=== PATIENT | female | born 1985 | race Caucasian/White ===

== ENCOUNTER 2017-08-28 22:56 | Emergency (ER) | payer OTHER ==
[2017-08-28 23:44] LABS: INR 0.96 (0.77-1.02)
[2017-08-28 23:47] LABS: EGFR Non-African American 136.7 (>60)
[2017-08-29 00:04] LABS: ABS Basophils 0.2 10^3/ul (0-0.2); ABS Eosinophils 0.5 10^3/ul (0-0.6); ABS Lymphocytes 2.1 10^3/ul (1.0-4.8); ABS Monocytes 0.8 10^3/ul (0-0.8); ABS Neutrophils 10.1 10^3/ul (1.5-7.7); ABS Nucleated RBC 0 10^3/ul; Eosinophil % 3.9 % (0-6); Hematocrit 36 % (35-47); Hemoglobin 12.2 g/dl (12.0-16.0); Lymphocyte % 15.3 % (25-47); Mean Corpuscular HGB Conc 34 g/dl (31-36); Mean Corpuscular Hemoglobin 33 pg (27-31); Mean Corpuscular Volume 95 fL (80-97); Mean Platelet Volume 8 um3 (7.4-10.4); Nucleated Red Blood Cells % 0; Platelet Count 332 10^3/ul (150-450); Red Blood Count 3.77 10^6/ul (4.0-5.4); Red Cell Distribution Width 13 % (10.5-15); White Blood Count 13.7 10^3/ul (3.5-10.8)
--- NOTE | 2017-08-29 00:17 | ED ---
- HPI Summary HPI Summary: 32F LMP in may presents for possible miscarriage today. 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 She states that she has been unable to take a test due to not being able to urinate on stick. She urinates in a pad. She states this morning was small area and spotting but throughout the day has not gotten worst and is passing large clots. No chest pain, palpitations, or dizziness. She admits to nausea but denies any vomiting. She admits to abdominal pressure but she can not feel pain in abdomen. She was suppose to have test done tomorrow. - History of Current Complaint Chief Complaint: EDOBProblems Stated Complaint: POSS MISCARRIAGE Time Seen by Provider: 08/28/17 23:16 Pain Intensity: 0 - Additional Pertinent History Primary Care Physician: [id number] - Allergies/Home Medications Allergies/Adverse Reactions: Allergies Allergy/AdvReac Type Severity Reaction Status Date / Time Ceftriaxone [From Rocephin] Allergy Itching Verified 07/18/15 09:02 Ciprofloxacin Allergy See Comment Verified 07/18/15 09:02 Ofloxacin [From Floxin] Allergy Unknown Verified 07/18/15 09:02 Reaction Details PMH/Surg Hx/FS Hx/Imm Hx Endocrine/Hematology History: Reports: Hx Anemia Denies: Hx Anticoagulant Therapy, Hx Blood Disorders, Hx Blood Transfusions, Hx Bone Marrow Disease, Hx Diabetes, Hx Systemic Lupus Erythematosus, Hx Sickle Cell Disease, Hx Thyroid Disease, Hx Unexplained Bleeding, Other Endocrine/ Hematological Disorders Cardiovascular History: Denies: Hx Congestive Heart Failure, Hx Hypertension Respiratory History: Reports: Hx Asthma - PRN INHALERS GI History: Reports: Hx Ileostomy - COLOSTOMY History: Reports: Hx Kidney Stones - CURRENTLY Denies: Hx Renal Disease Musculoskeletal History: Reports: Hx Arthritis - LOW BACK, Hx Back Problems, Hx Tendonitis - WRISTS Sensory History: Reports: Hx Contacts or Glasses - INSTRUCTS Denies: Hx Cataracts, Hx Eye Injury, Hx Eye Prosthesis, Hx Glaucoma, Hx Legally Blind, Hx Macular Degeneration, Hx Vision Problem, Hx Deafness, Hx Hearing Aid, Hx Hearing Problem Opthamlomology History: Reports: Hx Contacts or Glasses - INSTRUCTS Denies: Hx Cataracts, Hx Eye Injury, Hx Eye Prosthesis, Hx Glaucoma, Hx Legally Blind, Hx Macular Degeneration, Hx Vision Problem Neurological History: Reports: Hx Spinal Cord Injury Psychiatric History: Reports: Hx Anxiety - NO MEDICATION FOR, Hx Depression - NO MEDICATION FOR Denies: Hx Attention Deficit Hyperactivity Disorder, Hx Eating Disorder, Hx Panic Disorder, Hx Post Traumatic Stress Disorder, Hx Community Mental Health Tx , Hx Schizophrenia, Hx Bipolar Disorder, Hx Suicide Attempt, Hx of Violent Episodes Against Others, Hx Substance Abuse - Surgical History Surgery Procedure, Year, and Place: 2002 spinal surgery-[facility] – [place]. EVACUATION OF EPIDURAL HEMATOMA. colostomy - 4 YEARS AGO. STENT PLACEMENT- RIGHT -[facility] [place]. STATES HAD OTHER SURGERIES - BUT DON'T KNOW WHAT THEY ARE FOR. 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 Denies: Traveled Outside the [place] in Last 30 Days - Family History Known Family History: Negative: Blood Disorder - Social History Alcohol Use: None Substance Use Type: Reports: None Smoking Status (MU): Light Every Day Tobacco Smoker Type: Cigarettes Amount Used/How Often: 1/2 PPD X 17 YEARS Have You Smoked in the Last Year: Yes Review of Systems Negative: Fever Negative: Palpitations, Chest Pain Positive: Other - vaginal bleeding All Other Systems Reviewed And Are Negative: Yes Physical Exam - Physical Exam Triage Information Reviewed: Yes Vital Signs Reviewed: Yes Appearance: Positive: Well-Appearing Skin: Positive: Warm, Dry Head/Face: Positive: Normal Head/Face Inspection Eyes: Positive: Normal, Conjunctiva Clear Respiratory/Lung Sounds: Positive: Clear to Auscultation, Breath Sounds Present Cardiovascular: Positive: Normal, RRR Abdomen Description: Positive: Other: - no sensation abdomen Bowel Sounds: Positive: Present Neurological: Positive: Speech Normal Psychiatric: Positive: Other - crying Diagnostics - Vital Signs Vital Signs Temp Pulse Resp BP Pulse Ox 08/28/17 23:12 97.6 F 76 20 119/76 100 - Laboratory Lab Results: Lab Results 08/28/17 08/28/17 08/28/17 Range/Units 23:13 23:13 23:13 INR (Anticoag Therapy) 0.96 (0.77-1.02) APTT 32.0 (26.0-36.3) seconds Sodium 134 (133-145) mmol/L Potassium 3.5 (3.5-5.0) mmol/L Chloride 106 (101-111) mmol/L Carbon Dioxide 21 L (22-32) mmol/L Anion Gap 7 (2-11) mmol/L BUN 9 (6-24) mg/dL Creatinine 0.52 (0.51-0.95) mg/dL Est GFR ( Amer) 175.7 (>60) Est GFR (Non-Af Amer) 136.7 (>60) BUN/Creatinine Ratio 17.3 (8-20) Glucose 85 (70-100) mg/dL Calcium 9.6 (8.6-10.3) mg/dL Total Bilirubin 0.20 (0.2-1.0) mg/dL AST 12 L (13-39) U/L ALT 9 (7-52) U/L Alkaline Phosphatase 68 (34-104) U/L Total Protein 7.6 (6.4-8.9) g/dL Albumin 4.2 (3.2-5.2) g/dL Globulin 3.4 (2-4) g/dL Albumin/Globulin Ratio 1.2 (1-3) Beta HCG, Quant 2982.00 mIU/mL Blood Type O Positive Result Diagrams: 08/28/17 23:13 08/28/17 23:13 Lab Statement: Any lab studies that have been ordered have been reviewed, and results considered in the medical decision making process. - Ultrasound No standard instances Ultrasound Interpretation: Positive (See Comments) - no visible intrauterine gestational sac, due to early gestation or spontaneous Ultrasound Interpretation Completed By: Radiologist Course/Dx - Course Course Of Treatment: 32F LMP in sept presents for possible miscarriage today. 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 She states that she has been unable to take a test due to not being able to urinate on stick. She urinates in a pad. She states this morning was small area and spotting but throughout the day has not gotten worst and is passing large clots. No chest pain, palpitations, or dizziness. She admits to nausea but denies any vomiting. She admits to abdominal pressure but she can not feel pain in abdomen. She was suppose to have test done tomorrow. on exam normal bowel sounds. patient can not feel abdomen. hcg is 2900. u/s shows no intrauterine pregnany. tech says saw products of conception in vaginal canal. did not due to pelvic for comfort of patient. will have follow up with obgyn. patient understand and agrees with plan. - Differential Diagnosis/HQI/PQRI: Incomplete , Spontaneous , Threatened - Diagnoses Provider Diagnoses: Vaginal bleeding in Discharge - Discharge Plan Condition: Good Disposition: HOME Patient Education Materials: Miscarriage (ED) Referrals: No Primary Care Phys,NOPCP [Primary Care Provider] - Heaven Honeycutt MD [Medical Doctor] - Additional Instructions: Likely miscarrying at this point Can take Tylenol for pain every 6 hours Follow up with obgyn, will need lab work done in 48 hours Return to ED if develop fever, severe bleeding with symptoms such as lightheadedness or any new or worsening symptoms
[2017-08-29 01:47] VITALS: BP 106/62
--- NOTE | 2017-08-29 07:44 | RAD ---
HISTORY: Vaginal bleeding with uncertain status. The beta-hCG measures 2982 mIU/mL COMPARISONS: None TECHNIQUE: Multiple transverse and longitudinal ultrasound images were obtained of the pelvis using grayscale, color flow, spectral and M-mode sonographic imaging. FINDINGS: UTERUS: The uterus measures 13.3 x 5.5 x 8.3 cm. The endometrial stripe is thickened and heterogeneous in echogenicity measuring up to 2.1 cm in thickness. GESTATION: No products of conception including a pole or gestational sac are visualized. CUL-DE-SAC: There is no free fluid within the cul-de-sac. RIGHT OVARY: The right ovary measures 2.6 x 1.6 x 2.3 cm. LEFT OVARY: The left ovary measures 2.4 x 1.9 x 2.7 cm. IMPRESSION: Irregular and thickened endometrial stripe in the presence of a positive beta-hCG could be seen in the setting of too early to visualize, missed or ectopic . Close clinical follow-up including serial beta hCG is advised.
== END 2017-08-29 01:48 | disposition home or self-care (01) ==
LOC: ED 22:56
DX: O46.90 Antepartum hemorrhage, unspecified, unspecified trimester (principal); Z3A.14 14 weeks gestation of pregnancy; N93.9 Abnormal uterine and vaginal bleeding, unspecified; F17.210 Nicotine dependence, cigarettes, uncomplicated
CPT/HCPCS: 36415; 76801; 80053; 84702; 85025; 85610; 85730; 86900; 86901; 99283

== ENCOUNTER 2019-01-17 16:42 | Emergency (ER) | payer SELFPAY ==
--- NOTE | 2019-01-17 17:34 | ED ---
Complex/Multi-Sys Presentation - HPI Summary HPI Summary: 33 year old F presenting to [facility] with a chief complaint of upper and lower, left-sided dental pain since yesterday. The patient rates the pain 10/10 in severity. Symptoms aggravated by nothing. Symptoms alleviated by nothing. Patient denies fever. - History Of Current Complaint Chief Complaint: EDDentalPain Time Seen by Provider: 01/17/19 17:28 Hx Obtained From: Patient Onset/Duration: Lasting Days - 1, Still Present Timing: Constant Severity Currently: Severe Location: Pain At: - upper and lower, left-sided dental pain Aggravating Factor(s): Nothing Alleviating Factor(s): Nothing Associated Signs And Symptoms: Negative: Fever - Allergies/Home Medications Allergies/Adverse Reactions: Allergies Allergy/AdvReac Type Severity Reaction Status Date / Time ceftriaxone [From Rocephin] Allergy Itching Verified 01/17/19 16:51 ofloxacin [From Floxin] Allergy Itching Verified 01/17/19 16:51 PMH/Surg Hx/FS Hx/Imm Hx Previously Healthy: No Endocrine/Hematology History: Reports: Hx Anemia Denies: Hx Anticoagulant Therapy, Hx Blood Disorders, Hx Blood Transfusions, Hx Bone Marrow Disease, Hx Diabetes, Hx Systemic Lupus Erythematosus, Hx Sickle Cell Disease, Hx Thyroid Disease, Hx Unexplained Bleeding, Other Endocrine/ Hematological Disorders Cardiovascular History: Denies: Hx Congestive Heart Failure, Hx Hypertension Respiratory History: Reports: Hx Asthma - PRN INHALERS GI History: Reports: Hx Ileostomy - COLOSTOMY History: Reports: Hx Kidney Stones - CURRENTLY Denies: Hx Renal Disease Musculoskeletal History: Reports: Hx Arthritis - LOW BACK, Hx Back Problems, Hx Tendonitis - WRISTS Sensory History: Reports: Hx Contacts or Glasses - INSTRUCTS Denies: Hx Cataracts, Hx Eye Injury, Hx Eye Prosthesis, Hx Glaucoma, Hx Legally Blind, Hx Macular Degeneration, Hx Vision Problem, Hx Deafness, Hx Hearing Aid, Hx Hearing Problem Opthamlomology History: Reports: Hx Contacts or Glasses - INSTRUCTS Denies: Hx Cataracts, Hx Eye Injury, Hx Eye Prosthesis, Hx Glaucoma, Hx Legally Blind, Hx Macular Degeneration, Hx Vision Problem Neurological History: Reports: Hx Spinal Cord Injury Psychiatric History: Reports: Hx Anxiety, Hx Depression, Hx Community Mental Health Tx, Hx Suicide Attempt Denies: Hx Attention Deficit Hyperactivity Disorder, Hx Eating Disorder, Hx Panic Disorder, Hx Post Traumatic Stress Disorder, Hx Inpatient Treatment, Hx Schizophrenia, Hx Bipolar Disorder, Hx of Violent Episodes Against Others, Hx Substance Abuse - Surgical History Surgery Procedure, Year, and Place: 2002 spinal surgery-[facility] [place]. EVACUATION OF EPIDURAL HEMATOMA. colostomy - 4 YEARS AGO. STENT PLACEMENT- RIGHT -[facility] [place]. STATES HAD OTHER SURGERIES - BUT DON'T KNOW WHAT THEY ARE FOR. 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 Denies: Traveled Outside the US in Last 30 Days - Family History Known Family History: Negative: Blood Disorder - Social History Alcohol Use: None Hx Substance Use: No Substance Use Type: Reports: None Hx Tobacco Use: Yes Smoking Status (MU): Light Every Day Tobacco Smoker Type: Cigarettes Amount Used/How Often: 1/2 PPD X 17 YEARS Have You Smoked in the Last Year: Yes Review of Systems Negative: Fever Positive: Dental Pain - upper and lower, left-sided dental pain All Other Systems Reviewed And Are Negative: Yes Physical Exam - Summary Physical Exam Summary: Appearance: The patient is well-nourished in no acute distress and in no acute pain. Skin: The skin is warm and dry and skin color reflects adequate perfusion. HEENT: The head is normocephalic and atraumatic. The pupils are equal and reactive. The conjunctivae are clear and without drainage. Nares are patent and without drainage. Mouth reveals moist mucous membranes and the throat is without erythema and exudate. The external ears are intact. The ear canals are patent and without drainage. The tympanic membranes are intact. Mouth: Patient has no cellulitis, abscess, or lymphadenopathy. She has LS3 fracture in her left, last maxillary premolar. Neck: The neck is supple with full range of motion and non-tender. There are no carotid bruits. There is no neck vein distension. Respiratory: Chest is non-tender. Lungs are clear to auscultation and breath sounds are symmetrical and equal. Cardiovascular: Heart is regular rate and rhythm. There is no murmur or rub auscultated. There is no peripheral edema and pulses are symmetrical and equal. Abdomen: The abdomen is soft and non-tender. There are normal bowel sounds heard in all four quadrants and there is no organomegaly palpated. Musculoskeletal: There is no back tenderness noted. Extremities are non-tender with full range of motion. There is good capillary refill. There is no peripheral edema or calf tenderness elicited. Neurological: Patient is alert and oriented to person, place and time. The patient has symmetrical motor strength in all four extremities. Cranial nerves are grossly intact. Deep tendon reflexes are symmetrical and equal in all four extremities. Psychiatric: The patient has an appropriate affect and does not exhibit any anxiety or depression. Triage Information Reviewed: Yes Vital Signs On Initial Exam: Initial Vitals Temp Pulse Resp BP Pulse Ox 97.8 F 112 18 122/80 100 01/17/19 16:51 01/17/19 16:51 01/17/19 16:51 01/17/19 16:51 01/17/19 16:51 Vital Signs Reviewed: Yes Diagnostics - Vital Signs Vital Signs Temp Pulse Resp BP Pulse Ox 01/17/19 16:51 97.8 F 112 18 122/80 100 - Laboratory Lab Statement: Any lab studies that have been ordered have been reviewed, and results considered in the medical decision making process. Complex Multi-Symp Course/Dx Course Of Treatment: Ms. Sierra is a candidate and broken tooth on her left mandible the maxillary teeth look okay. There is no sign of cellulitis or abscess. There is no lymphadenopathy. I will treat her with antibiotics and pain medication. She gets a prescription every 10 days or so for hydrocodone and is due for a new one so I will fill that. She is allergic to Rocephin but states that she can tolerate penicillin and I will treat her with pen VK. - Diagnoses Provider Diagnoses: Toothache Discharge - Sign-Out/Discharge Documenting (check all that apply): Patient Departure - Discharge Patient Received Moderate/Deep Sedation with Procedure: No - Discharge Plan Condition: Stable Disposition: HOME Prescriptions: HYDROcodone/ACETAMIN 5-325 MG* [[place] 5-325 TAB*] 1 tab PO Q6H PRN #20 tab MDD 4 PRN Reason: Pain Penicillin VK TAB* [Penicillin VK 250 mg Tab*] 500 mg PO QID #40 tab Patient Education Materials: Toothache (ED) Referrals: Hardik Farley [employer] [Primary Care Provider] - Additional Instructions: Follow up with your dentist in 3 days. Return to the Emergency Department for new or worsening symptoms. - Billing Disposition and Condition Condition: STABLE Disposition: Home - Attestation Statements Document Initiated by Scribe: Yes Documenting Scribe: Brittany Partida Provider For Whom Scribe is Documenting (Include Credential): Schuyler Joshi MD Scribe Attestation: I, Brittany Partida, scribed for Schuyler Joshi MD on 01/18/19 at 0730. Scribe Documentation Reviewed: Yes Provider Attestation: The documentation as recorded by the scribeBrittany accurately reflects the service I personally performed and the decisions made by me, Schuyler Joshi MD Status of Scribe Document: Viewed
[2019-01-17 17:44] VITALS: BP 125/78
== END 2019-01-17 17:42 | disposition home or self-care (01) ==
LOC: ED 16:42
DX: K08.89 Other specified disorders of teeth and supporting structures (principal); D64.9 Anemia, unspecified; J45.909 Unspecified asthma, uncomplicated; F17.210 Nicotine dependence, cigarettes, uncomplicated
CPT/HCPCS: 99282

== ENCOUNTER 2019-01-26 01:44 | Emergency (ER) | payer OTHER ==
[2019-01-26] MEDS ORDERED: LORazepam INJ* 2 MG/ML 1 ML VIAL ONE ×2 (01:47→02:00)
--- NOTE | 2019-01-26 01:51 | ED ---
Psychiatric Complaint - HPI Summary HPI Summary: This patient is a 33 year old female brought in by law enforcement on 941 presenting to [facility] with a chief complaint of suicide attempt. The patient video chatted her putting a pair of scissors to her throat threatening to slit it. Her called law enforcement and she was gesturing the attempt when they arrived. Law Enforcement states she does not want to be here because a surgical error resulted in paralysis from the waist down, and that it is giving her anxiety. They also state that the source of this SI and plan are a losing custody gilliam over her children. - History Of Current Complaint Hx Obtained From: Patient, Other: - Law Enforcment Severity Currently: Severe Character: Anxious Has Suicidal: Reports: Thoughts, With A Plan, Demonstrates Gesture, Has Prior Attempt(s) - Allergies/Home Medications Allergies/Adverse Reactions: Allergies Allergy/AdvReac Type Severity Reaction Status Date / Time ceftriaxone [From Rocephin] Allergy Itching Verified 01/17/19 16:51 ofloxacin [From Floxin] Allergy Itching Verified 01/17/19 16:51 PMH/Surg Hx/FS Hx/Imm Hx Endocrine/Hematology History: Reports: Hx Anemia Denies: Hx Anticoagulant Therapy, Hx Blood Disorders, Hx Blood Transfusions, Hx Bone Marrow Disease, Hx Diabetes, Hx Systemic Lupus Erythematosus, Hx Sickle Cell Disease, Hx Thyroid Disease, Hx Unexplained Bleeding, Other Endocrine/ Hematological Disorders Cardiovascular History: Denies: Hx Congestive Heart Failure, Hx Hypertension Respiratory History: Reports: Hx Asthma - PRN INHALERS GI History: Reports: Hx Ileostomy - COLOSTOMY History: Reports: Hx Kidney Stones - CURRENTLY Denies: Hx Renal Disease Musculoskeletal History: Reports: Hx Arthritis - LOW BACK, Hx Back Problems, Hx Tendonitis - WRISTS Sensory History: Reports: Hx Contacts or Glasses - INSTRUCTS Denies: Hx Cataracts, Hx Eye Injury, Hx Eye Prosthesis, Hx Glaucoma, Hx Legally Blind, Hx Macular Degeneration, Hx Vision Problem, Hx Deafness, Hx Hearing Aid, Hx Hearing Problem Opthamlomology History: Reports: Hx Contacts or Glasses - INSTRUCTS Denies: Hx Cataracts, Hx Eye Injury, Hx Eye Prosthesis, Hx Glaucoma, Hx Legally Blind, Hx Macular Degeneration, Hx Vision Problem Neurological History: Reports: Hx Spinal Cord Injury Psychiatric History: Reports: Hx Anxiety, Hx Depression, Hx Community Mental Health Tx, Hx Suicide Attempt Denies: Hx Attention Deficit Hyperactivity Disorder, Hx Eating Disorder, Hx Panic Disorder, Hx Post Traumatic Stress Disorder, Hx Inpatient Treatment, Hx Schizophrenia, Hx Bipolar Disorder, Hx of Violent Episodes Against Others, Hx Substance Abuse - Surgical History Surgery Procedure, Year, and Place: 2002 spinal surgery[place] [place] EVACUATION OF EPIDURAL HEMATOMA. colostomy - 4 YEARS AGO. STENT PLACEMENT- RIGHT [place] [place] STATES HAD OTHER SURGERIES - BUT DON'T KNOW WHAT THEY ARE FOR. 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 GENERAL: Patient is a well-developed and nourished FEMALE who is crying an uncooperative. HEAD AND FACE: No signs of trauma. No ecchymosis, hematomas or skull depressions. No sinus tenderness. EYES: PERRLA, EOMI x 2, No injected conjunctiva, no nystagmus. EARS: Hearing grossly intact. Ear canals and tympanic membranes are within normal limits. MOUTH: Oropharynx within normal limits. NECK: Supple, trachea is midline, no adenopathy, no JVD, no carotid bruit, no c- spine tenderness, neck with full ROM. Self inflicted superficial laceration over her neck. CHEST: Symmetric, no tenderness at palpation LUNGS: Clear to auscultation bilaterally. No wheezing or crackles. CVS: Regular rate and rhythm, S1 and S2 present, no murmurs or gallops appreciated.Colostomy with a clean artificial outlet on the left lower quadrant with no ostomy bag present. ABDOMEN: Soft, non-tender. No signs of distention. No rebound no guarding, and no masses palpated. Bowel sounds are normal. EXTREMITIES: Paraplegia in the bilateral lower extremities, no edema, no cyanosis or clubbing. NEURO: Alert and oriented x 3. No acute neurological deficits. Speech is normal and follows commands. SKIN: Dry and warm GCS: 15 Triage Information Reviewed: Yes Vital Signs On Initial Exam: Temp Pulse Resp BP Pulse Ox 99.5 F 133 30 00/00 100 01/26/19 01:44 01/26/19 01:44 01/26/19 01:44 01/26/19 01:44 01/26/19 01:44 Vital Signs Reviewed: Yes Diagnostics - Laboratory Result Diagrams: 01/26/19 02:41 01/26/19 02:41 Lab Statement: Any lab studies that have been ordered have been reviewed, and results considered in the medical decision making process. - CT Brain CT Interpretation Completed By: Radiologist Summary of CT Findings: No acute intracranial abnormality. ED Provider has reviewed this report. Course/Dx - Course Course Of Treatment: This patient is a 33 year old female brought in by law enforcement on 941 presenting to [facility] with a chief complaint of suicide attempt. This patient will be signed out to Dr. Jackson pending medical clearance and MHE. - Differential Dx/Clinical Impression Provider Diagnosis: Suicidal ideation Discharge - Sign-Out/Discharge Documenting (check all that apply): Sign-Out Patient Signing out patient TO: Schuyler Jackson - At shift change 0700 - Discharge Plan Condition: Stable Referrals: Hardik Farley, [employer]DER [Primary Care Provider] - - Attestation Statements Document Initiated by Scribe: Yes Documenting Scribe: Uriah Isidro Provider For Whom Scribe is Documenting (Include Credential): Shelby Oglesby MD Scribe Attestation: Uriah Leary, scribed for Shelby Oglesby MD on 01/26/19 at 0638.
[2019-01-26] MEDS ORDERED: Haloperidol INJ IV/IM* 5 MG/ML AMP ONE (02:00)
[2019-01-26] MEDS ORDERED: diPHENhydraMINE PO* 50 MG ONE (02:00)
[2019-01-26 02:50] LABS: ABS Basophils 0.1 10^3/ul (0-0.2); ABS Eosinophils 0.3 10^3/ul (0-0.6); ABS Lymphocytes 1.5 10^3/ul (1.0-4.8); ABS Monocytes 0.5 10^3/ul (0-0.8); ABS Neutrophils 6.6 10^3/ul (1.5-7.7); Eosinophil % 2.9 %; Hematocrit 34 % (35-47); Hemoglobin 10.9 g/dL (12.0-16.0); Lymphocyte % 17.2 %; Mean Corpuscular HGB Conc 32 g/dL (31-36); Mean Corpuscular Hemoglobin 29 pg (27-31); Mean Corpuscular Volume 88 fL (80-97); Mean Platelet Volume 7.7 fL (7.4-10.4); Platelet Count 438 10^3/uL (150-450); Red Blood Count 3.83 10^6 /uL (3.70-4.87); Red Cell Distribution Width 17 % (10.5-15); White Blood Count 8.9 10^3/uL (3.5-10.8)
[2019-01-26 03:05] LABS: ALT 13 U/L (7-52); AST 21 U/L (13-39); Albumin 4.4 g/dL (3.2-5.2); Albumin/Globulin Ratio 1.4 (1-3); Alkaline Phosphatase 109 U/L (34-104); Anion Gap 7 mmol/L (2-11); BUN/Creatinine Ratio 11.4 (8-20); Blood Urea Nitrogen 8 mg/dL (6-24); CO2 Carbon Dioxide 22 mmol/L (22-32); Calcium 9.4 mg/dL (8.6-10.3); Chloride 110 mmol/L (101-111); EGFR African American 116.6 (>60); EGFR Non-African American 96.4 (>60); Globulin 3.2 g/dL (2-4); Glucose 92 mg/dL (70-100); Potassium 3.7 mmol/L (3.5-5.0); Sodium 139 mmol/L (135-145); Total Protein 7.6 g/dL (6.4-8.9)
[2019-01-26 03:12] LABS: HCG Pregnancy < 0.60 mIU/mL
[2019-01-26 03:19] LABS: Acetaminophen < 15 mcg/mL; Alcohol < 10 mg/dL (<10); Salicylate < 2.50 mg/dL (<30)
[2019-01-26 03:34] LABS: TSH (Thyroid Stimulating Horm) 0.73 mcIU/mL (0.34-5.60)
--- NOTE | 2019-01-26 07:05 | ED ---
Progress - Progress Note Progress Note: This patient was signed out from Dr. Oglesby to Dr. Jackson upon shift change, pending medical clearance and MHE. This patient was medically cleared for MHE at 0729. MHE done at [address] Holloway. The patient will be discharged after safety plan is done with dx of unspecified depression. She will also be given instructions by the MHU to follow up with [facility]. Patient understands and agrees with this plan. Course/Dx - Course Course Of Treatment: This patient was signed out from Dr. Oglesby to Dr. Jackson upon shift change, pending medical clearance and MHE. This patient was medically cleared for MHE at 0729. MHE done at [address] Holloway. The patient will be discharged after safety plan is done with dx of unspecified depression. She will also be given instructions by the MHU to follow up with [facility]. Patient understands and agrees with this plan. - Diagnoses Provider Diagnoses: Depression Discharge - Sign-Out/Discharge Documenting (check all that apply): Patient Departure - discharge Patient Received Moderate/Deep Sedation with Procedure: No - Discharge Plan Condition: Stable Disposition: HOME Patient Education Materials: Depression (ED) Referrals: Hardik Farley NP [Primary Care Provider] - - Billing Disposition and Condition Condition: STABLE Disposition: Home - Attestation Statements Document Initiated by Breana: Yes Documenting Scribe: Elie Warren Provider For Whom Breana is Documenting (Include Credential): MD Breana Morris Attestation: Elie Leary, scribed for Schuyler Jackson MD on 01/26/19 at 1704. Scribe Documentation Reviewed: Yes Provider Attestation: The documentation as recorded by the Elie devries accurately reflects the service I personally performed and the decisions made by , Schuyler Jackson MD Status of Scribe Document: Viewed
[2019-01-26 10:33] VITALS: BP 112/65
== END 2019-01-26 11:00 | disposition home or self-care (01) ==
LOC: ED 01:44
DX: R45.851 Suicidal ideations (principal); F32.9 Major depressive disorder, single episode, unspecified; G82.20 Paraplegia, unspecified; D64.9 Anemia, unspecified; J45.909 Unspecified asthma, uncomplicated; M19.90 Unspecified osteoarthritis, unspecified site; F41.9 Anxiety disorder, unspecified; F17.210 Nicotine dependence, cigarettes, uncomplicated; Z88.3 Allergy status to other anti-infective agents; Z88.8 Allergy status to other drugs, medicaments and biological substances; Z95.1 Presence of aortocoronary bypass graft; Z93.3 Colostomy status; Z87.442 Personal history of urinary calculi
CPT/HCPCS: 36415; 70450; 80053; 80320; 80329; 84443; 84702; 85025; 99285; A9270-GY; G0480; J1630; J2060

== ENCOUNTER 2019-01-29 21:35 | Emergency (ER) | payer MEDICAID, OTHER ==
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
[2019-01-30 00:18] VITALS: BP 116/72
== END 2019-01-30 00:20 | disposition home or self-care (01) ==
LOC: ED 21:35
DX: S06.0X0A Concussion without loss of consciousness, initial encounter (principal); X58.XXXA Exposure to other specified factors, initial encounter; D64.9 Anemia, unspecified; J45.909 Unspecified asthma, uncomplicated; M19.90 Unspecified osteoarthritis, unspecified site; F41.9 Anxiety disorder, unspecified; F32.9 Major depressive disorder, single episode, unspecified; F17.210 Nicotine dependence, cigarettes, uncomplicated; Z88.8 Allergy status to other drugs, medicaments and biological substances; Z88.3 Allergy status to other anti-infective agents; Z79.51 Long term (current) use of inhaled steroids; Z93.3 Colostomy status
CPT/HCPCS: 36415; 70450; 84702; 99282

== ENCOUNTER 2019-02-03 09:32 | Emergency (ER) | payer MEDICAID, OTHER ==
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
[2019-02-03 11:34] VITALS: BP 123/74
== END 2019-02-03 11:31 | disposition home or self-care (01) ==
LOC: ED 09:32
DX: M20.61 Acquired deformities of toe(s), unspecified, right foot (principal); W05.0XXA Fall from non-moving wheelchair, initial encounter; Y92.9 Unspecified place or not applicable; Z99.3 Dependence on wheelchair; D64.9 Anemia, unspecified; J45.909 Unspecified asthma, uncomplicated; F17.210 Nicotine dependence, cigarettes, uncomplicated; Z93.3 Colostomy status
CPT/HCPCS: 99281

== ENCOUNTER 2019-02-23 18:10 | Inpatient (IN) | payer OTHER ==
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
[2019-02-23] MEDS ORDERED: LORazepam INJ* 2 MG/ML 1 ML VIAL IM ONE (18:36)
[2019-02-23] MEDS ORDERED: diPHENhydraMINE IV* 50 MG/ML 1 ml VIAL (BENADRYL) IM ONE (18:36)
[2019-02-23] MEDS ORDERED: Haloperidol INJ IV/IM* 5 MG/ML AMP IM ONE (18:36)
[2019-02-23] MEDS ORDERED: LORazepam INJ* 2 MG/ML 1 ML VIAL ONE (18:53)
[2019-02-23 20:14] LABS: ABS Basophils 0.1 10^3/ul (0-0.2); ABS Eosinophils 0.2 10^3/ul (0-0.6); ABS Lymphocytes 1.5 10^3/ul (1.0-4.8); ABS Monocytes 0.7 10^3/ul (0-0.8); ABS Neutrophils 8.9 10^3/ul (1.5-7.7); Eosinophil % 1.7 %; Hematocrit 34 % (35-47); Hemoglobin 11.1 g/dL (12.0-16.0); Lymphocyte % 12.8 %; Mean Corpuscular HGB Conc 33 g/dL (31-36); Mean Corpuscular Hemoglobin 29 pg (27-31); Mean Corpuscular Volume 86 fL (80-97); Mean Platelet Volume 7.3 fL (7.4-10.4); Platelet Count 481 10^3/uL (150-450); Red Cell Distribution Width 17 % (10-15); White Blood Count 11.4 10^3/uL (3.5-10.8)
[2019-02-23 20:31] LABS: ALT 13 U/L (7-52); AST 17 U/L (13-39); Albumin 4.4 g/dL (3.2-5.2); Albumin/Globulin Ratio 1.3 (1-3); Alkaline Phosphatase 120 U/L (34-104); Anion Gap 8 mmol/L (2-11); BUN/Creatinine Ratio 8.8 (8-20); Blood Urea Nitrogen 6 mg/dL (6-24); CO2 Carbon Dioxide 22 mmol/L (22-32); Calcium 9.7 mg/dL (8.6-10.3); Chloride 107 mmol/L (101-111); EGFR African American 120.6 (>60); EGFR Non-African American 99.6 (>60); Globulin 3.5 g/dL (2-4); Glucose 89 mg/dL (70-100); Potassium 3.6 mmol/L (3.5-5.0); Sodium 137 mmol/L (135-145); Total Protein 7.9 g/dL (6.4-8.9)
[2019-02-23 20:36] LABS: HCG Pregnancy < 0.60 mIU/mL
[2019-02-23 20:50] LABS: Acetaminophen < 15 mcg/mL; Alcohol < 10 mg/dL (<10); Salicylate < 2.50 mg/dL (<30)
[2019-02-23 21:05] LABS: TSH (Thyroid Stimulating Horm) 1.32 mcIU/mL (0.34-5.60)
--- NOTE | 2019-02-24 04:30 | ED ---
Progress - Progress Note Progress Note: Patient is received as a sign out from Dr. Joshi to Dr. Oglesby at 2200 02/23/19 shift end pending MHE and disposition of this MH patient. 51 - Dr. Quintanilla has reviewed the patient's case per MH worker. Patient will be transferred to another facility, Dx of depressive disorder. Patient will be signed out to Dr. Esqueda at 0700 02/24/19 pending disposition of this mental health patient. - Consult/PCP Time Called: 22:02 Course/Dx - Course Course Of Treatment: Patient is received as a sign out from Dr. Joshi to Dr. Oglesby at 2200 02/23/19 shift end pending MHE and disposition of this MH patient. 51 - Dr. Quintanilla has reviewed the patient's case per MH worker. Patient will be transferred to another facility, Dx of depressive disorder. Patient will be signed out to Dr. Esqueda at 0700 02/24/19 pending disposition of this mental health patient. - Diagnoses Provider Diagnoses: Depressive disorder - Provider Notifications Discussed Care Of Patient With: Terrance Quintanilla Time Discussed With Above Provider: 00:52 Instructed by Provider To: Other - 51 - Dr. Quintanilla has reviewed the patient' s case per MH worker. Patient will be transferred to another facility, Dx of depressive disorder. Discharge - Sign-Out/Discharge Documenting (check all that apply): Sign-Out Patient, Receiving Sign-Out Signing out patient TO: Amandeep Esqueda Receiving patient FROM: Schuyler Joshi - Discharge Plan Referrals: Hardik Farley, [employer] [Primary Care Provider] - - Attestation Statements Document Initiated by Scribe: Yes Documenting Scribe: BETO HERNNADEZ Provider For Whom Breana is Documenting (Include Credential): JATIN OGLESBY MD Scrib[employer]ro Attestation: BETO Leary, paruled for JATIN OGLESBY MD on 02/24/19 at 0608. Status of Scribe Document: Ready
--- NOTE | 2019-02-24 07:22 | ED ---
Progress - Progress Note Progress Note: Pt is received as a sign out to Dr. Esqueda from Dr. Oglesby at shift change 0700 pending a transfer for this mental health pt. - Consult/PCP Time Called: 22:02 Re-Evaluation - Re-Evaluation First Eval Re-Evaluation Time: 08:08 Change: Unchanged Comment: Pt will be admitted to [facility] per Adan Irving. Course/Dx - Course Course Of Treatment: Pt is received as a sign out to Dr. Esqueda from Dr. Oglesby at shift change 0700 02/24/19 pending a transfer for this mental health pt. Pt will be admitted to [facility] with a Dx of unspecified depression from adan Irving. - Diagnoses Provider Diagnoses: Depressive disorder - Provider Notifications Discussed Care Of Patient With: Anastacio Quintanilla Time Discussed With Above Provider: 08:07 Instructed by Provider To: Admit As Inpatient Admit/Transition Orders Completed By ED Provider: Yes Discharge - Sign-Out/Discharge Documenting (check all that apply): Patient Departure - admitted Patient Received Moderate/Deep Sedation with Procedure: No - Discharge Plan Condition: Stable Disposition: PSYCHIATRIC FACILITY-[facility] - Attestation Statements Document Initiated by Scribe: Yes Documenting Scribe: Ricardo Velásquez Provider For Whom Scribe is Documenting (Include Credential): Amandeep Esqueda MD Scribe Attestation: Ricardo Leary, scribed for Amandeep Esqueda MD on 02/24/19 at 1706. Status of Scribe Document: Ready
[2019-02-24] MEDS ORDERED: Acetaminophen TAB* 325 MG PO PRN (10:48)
[2019-02-24] MEDS ORDERED: Al Hydrox/Mg Hydrox/Simet LIQ* 30 ML UDC PO PRN (10:48)
[2019-02-24] MEDS: hydrOXYzine HCL TAB* 25 MG PO PRN (18:46)
[2019-02-24 20:32] LABS: Urine Appearance Cloudy; Urine Bacteria Absent (Absent); Urine Bilirubin Negative (Negative); Urine Blood 2+ (Negative); Urine Color Amber; Urine Glucose Negative (Negative); Urine Ketones 1+ (Negative); Urine Nitrite Positive (Negative); Urine Protein Negative (Negative); Urine Red Blood Cell 2+(6-10/hpf) (Absent); Urine Specific Gravity 1.018 (1.010-1.030); Urine Squamous Epithelial Cell Present (Absent); Urine Urobilinogen Negative (Negative); Urine White Blood Cell 3+(>20/hpf) (Absent)
[2019-02-24 20:41] LABS: Urine Benzodiazepine Screen None Detected (None Detect); Urine Opiates Screen None Detected (None Detect)
[2019-02-25] MEDS ORDERED: Venlafaxine ER (NF) 150 MG CAP.ER PO SCH (09:00)
[2019-02-25] MEDS: NORGESTIMATE ETHINYL ESTRADIOL PO SCH (09:07)
[2019-02-25] MEDS: Venlafaxine EXT RELEASE CAP* 75 MG PO SCH (10:10)
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
[2019-02-26] MEDS: hydrOXYzine HCL TAB* 25 MG PO PRN ×2 (02:53→17:55)
[2019-02-26] MEDS: NORGESTIMATE ETHINYL ESTRADIOL PO SCH (08:50)
[2019-02-26] MEDS: Venlafaxine EXT RELEASE CAP* 75 MG PO SCH (09:02)
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
[2019-02-27] MEDS: hydrOXYzine HCL TAB* 25 MG PO PRN (00:08)
[2019-02-27] MEDS: NORGESTIMATE ETHINYL ESTRADIOL PO SCH (08:02)
[2019-02-27 08:18] VITALS: BP 113/50
[2019-02-27] MEDS: Venlafaxine EXT RELEASE CAP* 75 MG PO SCH (09:14)
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
== END 2019-02-27 11:05 | disposition home or self-care (01) | DRG 751 ==
LOC: ED 18:10 → BSU 02-24 10:48
PROVIDERS: ADMIT Psychiatry & Neurology Psychiatry; ATTEND Psychiatry & Neurology Psychiatry
DX: F33.1 Major depressive disorder, recurrent, moderate (principal); D68.0 Von Willebrand disease; F41.9 Anxiety disorder, unspecified; L98.8 Other specified disorders of the skin and subcutaneous tissue; J45.909 Unspecified asthma, uncomplicated; S11.91XA Laceration without foreign body of unspecified part of neck, initial encounter; X78.1XXA Intentional self-harm by knife, initial encounter; N20.0 Calculus of kidney; F17.210 Nicotine dependence, cigarettes, uncomplicated; Z91.5 Personal history of self-harm; Z87.440 Personal history of urinary (tract) infections; Z88.1 Allergy status to other antibiotic agents; Y92.099 Unspecified place in other non-institutional residence as the place of occurrence of the external cause; Z93.3 Colostomy status
CPT/HCPCS: 36415; 80053; 80061; 80307; 80320; 80329; 81003; 81015; 83036; 84443; 84702; 85025; 87077; 87086; 87186; 87641; 93005; 99222; 99231; 99238; 99284; A9270-GY; G0480; J1200; J1630; J2060

== ENCOUNTER 2019-08-15 01:46 | Emergency (ER) | payer OTHER ==
[2019-08-15] MEDS ORDERED: Naproxen TAB* 250 MG PO ONE (05:58)
--- NOTE | 2019-08-15 06:10 | ED ---
Upper Extremity Pain - HPI Summary HPI Summary: Patient is a 34-year-old female who presents emergency department for exacerbation of left shoulder pain 3 days. Patient states she's been having intermittent left shoulder pain for about 3 years. 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 Patient is confined to wheelchair and uses her arms frequently. She does not recall any significant injuries or falls. Patient states she has not taken any over-the- counter analgesics or tried ice or heat for pain. Symptoms are mild in severity. Moving all extremities worse. Rest makes symptoms better. - History of Current Complaint Chief Complaint: EDExtremityUpper Stated Complaint: LEFT SHOULDER PAIN Time Seen by Provider: 08/15/19 05:37 Hx Obtained From: Patient - Allergies/Home Medications Allergies/Adverse Reactions: Allergies Allergy/AdvReac Type Severity Reaction Status Date / Time ceftriaxone [From Rocephin] Allergy Itching Verified 02/03/19 10:18 ciprofloxacin [From Cipro] Allergy See Comment Verified 02/03/19 10:18 ofloxacin [From Floxin] Allergy Itching Verified 02/03/19 10:18 PMH/Surg Hx/FS Hx/Imm Hx Previously Healthy: Yes Endocrine/Hematology History: Reports: Hx Anemia Denies: Hx Anticoagulant Therapy, Hx Blood Disorders, Hx Blood Transfusions, Hx Bone Marrow Disease, Hx Diabetes, Hx Systemic Lupus Erythematosus, Hx Sickle Cell Disease, Hx Thyroid Disease, Hx Unexplained Bleeding, Other Endocrine/ Hematological Disorders Cardiovascular History: Denies: Hx Congestive Heart Failure, Hx Hypertension Respiratory History: Reports: Hx Asthma - PRN INHALERS GI History: Reports: Hx Ileostomy - COLOSTOMY History: Reports: Hx Kidney Stones, Other Problems/Disorders - hx of frequent UTIs Denies: Hx Renal Disease Musculoskeletal History: Reports: Hx Arthritis - LOW BACK, Hx Back Problems, Hx Tendonitis - WRISTS Sensory History: Reports: Hx Contacts or Glasses - INSTRUCTS Denies: Hx Cataracts, Hx Eye Injury, Hx Eye Prosthesis, Hx Glaucoma, Hx Legally Blind, Hx Macular Degeneration, Hx Vision Problem, Hx Deafness, Hx Hearing Aid, Hx Hearing Problem Opthamlomology History: Reports: Hx Contacts or Glasses - INSTRUCTS Denies: Hx Cataracts, Hx Eye Injury, Hx Eye Prosthesis, Hx Glaucoma, Hx Legally Blind, Hx Macular Degeneration, Hx Vision Problem Neurological History: Reports: Hx Spinal Cord Injury Psychiatric History: Reports: Hx Anxiety, Hx Depression, Hx Community Mental Health Tx, Hx Suicide Attempt Denies: Hx Attention Deficit Hyperactivity Disorder, Hx Eating Disorder, Hx Panic Disorder, Hx Post Traumatic Stress Disorder, Hx Inpatient Treatment, Hx Schizophrenia, Hx Bipolar Disorder, Hx of Violent Episodes Against Others, Hx Substance Abuse - Surgical History Surgery Procedure, Year, and Place: 2002 spinal surgery-[facility]. EVACUATION OF EPIDURAL HEMATOMA. colostomy - 4 YEARS AGO. STENT PLACEMENT- RIGHT [place] [place]. STATES HAD OTHER SURGERIES - BUT DON'T KNOW WHAT THEY ARE FOR. 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, History Other Infectious Disease - VRE Denies: Traveled Outside the [place] in Last 30 Days - Family History Known Family History: Positive: Non-Contributory Negative: Blood Disorder - Social History Occupation: Employed Full-time Lives: With Family Alcohol Use: None Alcohol Amount: unk Hx Substance Use: No Substance Use Type: Reports: None Substance Use Comment - Amount & Last Used: unk Hx Tobacco Use: Yes Smoking Status (MU): Current Every Day Smoker Type: Cigarettes Amount Used/How Often: 1/2 PPD X 17 YEARS Have You Smoked in the Last Year: Yes Review of Systems Constitutional: Negative Negative: Fever Positive: Other - left shoulder pain Skin: Negative Neurological: Negative Negative: Weakness, Paresthesia, Numbness All Other Systems Reviewed And Are Negative: Yes Physical Exam Triage Information Reviewed: Yes Vital Signs On Initial Exam: Initial Vitals Temp Pulse Resp BP Pulse Ox 97.8 F 82 18 119/66 100 08/15/19 02:17 08/15/19 02:17 08/15/19 02:17 08/15/19 02:17 08/15/19 02:17 Vital Signs Reviewed: Yes Appearance: Positive: Well-Appearing - Pt. lying in bed in NAD. Skin: Positive: Warm, Dry Head/Face: Positive: Normal Head/Face Inspection Eyes: Positive: Normal, EOMI, RAMAKRISHNA Neck: Positive: Supple, Nontender Musculoskeletal: Positive: Other - Paraplegic. Good pulse to left UE. No edema. Full ROM of shoulder with pain with abduction. Pain over proximal humerous. Neurological: Positive: Normal, CN Intact II-III Psychiatric: Positive: Affect/Mood Appropriate Procedures - Sedation Patient Received Moderate/Deep Sedation with Procedure: No Diagnostics - Vital Signs Vital Signs Temp Pulse Resp BP Pulse Ox 08/15/19 02:17 97.8 F 82 18 119/66 100 - Laboratory Lab Statement: Any lab studies that have been ordered have been reviewed, and results considered in the medical decision making process. Course/Dx - Course Course Of Treatment: Shoulder x-ray negative for acute findings per my reading. Suspect possibly tendinitis secondary to overuse. Recommend anti- inflammatories ice and rest. Will follow-up with PCP if pain persists further evaluation. Patient understands and agrees with plan. - Diagnoses Differential Diagnosis/HQI/PQRI: Positive: Arthritis, Bursitis, Fracture (Closed ), Strain, Sprain Provider Diagnoses: Shoulder pain Discharge ED - Sign-Out/Discharge Documenting (check all that apply): Patient Departure - Discharge Plan Condition: Good Disposition: HOME Patient Education Materials: Shoulder Pain (ED) Forms: *Work Release Referrals: Hardik Farley NP [Primary Care Provider] - Additional Instructions: Follow up with your PCP if pain persist Recommend ibuprofen 400mg every 6-8 hours as directed for pain Avoid overuse Ice intermittently Return to ER if symptoms change or worsen - Billing Disposition and Condition Condition: GOOD Disposition: Home
[2019-08-15 06:40] VITALS: BP 121/76
== END 2019-08-15 06:20 | disposition home or self-care (01) ==
LOC: ED 01:46
DX: M25.512 Pain in left shoulder (principal); D64.9 Anemia, unspecified; J45.909 Unspecified asthma, uncomplicated; G82.20 Paraplegia, unspecified; F41.9 Anxiety disorder, unspecified; F32.9 Major depressive disorder, single episode, unspecified; F17.210 Nicotine dependence, cigarettes, uncomplicated; Z87.442 Personal history of urinary calculi; Z88.1 Allergy status to other antibiotic agents
CPT/HCPCS: 99283; A9270-GY

== ENCOUNTER 2019-09-13 15:03 | Emergency (ER) | payer MEDICAID, OTHER ==
[2019-09-13] MEDS ORDERED: Ketorolac TAB * 10 MG TAB PO ONE (16:15)
--- NOTE | 2019-09-13 16:17 | ED ---
Headache - HPI Summary HPI Summary: Pt is a 34 y/o F presenting to the ED with a chief complaint of L shoulder pain and accompanying headache. She states she sprained her L shoulder a few years ago when working for [employer]. The pain has progressively worsened to the point where her L arm will sporadically go numb and tingly. No neck pain, her seizures are usually positional. She also notes migraines that began 5 yrs ago that she has had every day since her first one. She takes up to 6 Excedrin migraine pills per day, and her migraines are accompanied by photophobia, nausea , and severe pain through the middle of her forehead. She was supposed to follow up with neurology but has not yet. She has a colostomy bag that she had placed 8 yrs ago d/t pressure sores and ran out of supplies. - History Of Current Complaint Chief Complaint: EDHeadache Stated Complaint: LT SHOULDER PAIN/HEADACHES PER PT Time Seen by Provider: 09/13/19 15:51 Hx Obtained From: Patient Onset/Duration: Gradual Onset, Still Present Initially Headache Was: Moderate Currently Pain Is: Moderate Timing: Constant, Weeks Character: Migraine Location of Headache: Frontal Aggravating Factor: Bright Lights Allevating Factors: Nothing Associated Signs And Symptoms: Nausea, Neck Pain - Allergies/Home Medications Allergies/Adverse Reactions: Allergies Allergy/AdvReac Type Severity Reaction Status Date / Time ceftriaxone [From Rocephin] Allergy Itching Verified 09/13/19 15:09 ciprofloxacin [From Cipro] Allergy See Comment Verified 09/13/19 15:09 ofloxacin [From Floxin] Allergy Itching Verified 09/13/19 15:09 PMH/Surg Hx/FS Hx/Imm Hx Previously Healthy: Yes Endocrine/Hematology History: Reports: Hx Anemia Denies: Hx Anticoagulant Therapy, Hx Blood Disorders, Hx Blood Transfusions, Hx Bone Marrow Disease, Hx Diabetes, Hx Systemic Lupus Erythematosus, Hx Sickle Cell Disease, Hx Thyroid Disease, Hx Unexplained Bleeding, Other Endocrine/ Hematological Disorders Cardiovascular History: Denies: Hx Congestive Heart Failure, Hx Hypertension Respiratory History: Reports: Hx Asthma - PRN INHALERS GI History: Reports: Hx Ileostomy - COLOSTOMY History: Reports: Hx Kidney Stones, Other Problems/Disorders - hx of frequent UTIs Denies: Hx Renal Disease Musculoskeletal History: Reports: Hx Arthritis - LOW BACK, Hx Back Problems, Hx Tendonitis - WRISTS Sensory History: Reports: Hx Contacts or Glasses - INSTRUCTS Denies: Hx Cataracts, Hx Eye Injury, Hx Eye Prosthesis, Hx Glaucoma, Hx Legally Blind, Hx Macular Degeneration, Hx Vision Problem, Hx Deafness, Hx Hearing Aid, Hx Hearing Problem Opthamlomology History: Reports: Hx Contacts or Glasses - INSTRUCTS Denies: Hx Cataracts, Hx Eye Injury, Hx Eye Prosthesis, Hx Glaucoma, Hx Legally Blind, Hx Macular Degeneration, Hx Vision Problem Neurological History: Reports: Hx Spinal Cord Injury Psychiatric History: Reports: Hx Anxiety, Hx Depression, Hx Community Mental Health Tx, Hx Suicide Attempt Denies: Hx Attention Deficit Hyperactivity Disorder, Hx Eating Disorder, Hx Panic Disorder, Hx Post Traumatic Stress Disorder, Hx Inpatient Treatment, Hx Schizophrenia, Hx Bipolar Disorder, Hx of Violent Episodes Against Others, Hx Substance Abuse - Surgical History Surgery Procedure, Year, and Place: 2002 spinal [place] [place] EVACUATION OF EPIDURAL HEMATOMA. colostomy - 4 YEARS AGO. STENT PLACEMENT- [place] [place] STATES HAD OTHER SURGERIES - BUT DON'T KNOW WHAT THEY ARE FOR. 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, History Other Infectious Disease - VRE Denies: Traveled Outside the [place] in Last 30 Days - Family History Known Family History: Negative: Blood Disorder - Social History Alcohol Use: Weekly Alcohol Amount: unk Hx Substance Use: No Substance Use Type: Reports: None Substance Use Comment - Amount & Last Used: unk Hx Tobacco Use: Yes Smoking Status (MU): Current Every Day Smoker Type: Cigarettes Amount Used/How Often: 1/2 PPD X 17 YEARS Have You Smoked in the Last Year: Yes Review of Systems Positive: Photophobia Positive: Nausea Positive: Arthralgia, Myalgia Positive: Headache, Paresthesia, Numbness All Other Systems Reviewed And Are Negative: Yes Physical Exam - Summary Physical Exam Summary: Constitutional: Well-developed, Well-nourished, Alert. (-) Distressed Skin: Warm, Dry HENT: Normocephalic; Atraumatic Eyes: Conjunctiva normal Neck: Musculoskeletal ROM normal neck. (-) JVD, (-) Stridor, (-) Nuchal rigidity Cardio: Rhythm regular, rate normal, Heart sounds normal; Intact distal pulses; Radial pulses are 2+ and symmetric. (-) Murmur Pulmonary/Chest wall: Effort normal. (-) Respiratory distress, (-) Wheezes, (-) Rales Abd: Soft, (-) tenderness, (-) Distension, (-) Guarding, (-) Rebound Musculoskeletal: Tenderness of L ant shoulder and AC joint. Full ROM of the shoulder. No tenderness of elbow or hand. 2+ radial pulses. No midline c-spine tenderness. Lymph: (-) Cervical adenopathy Neuro: Alert, Oriented x3 Psych: Mood and affect Normal Triage Information Reviewed: Yes Vital Signs On Initial Exam: Initial Vitals Temp Pulse Resp BP Pulse Ox 97.7 F 80 16 85/55 98 09/13/19 15:06 09/13/19 15:06 09/13/19 15:06 09/13/19 15:06 09/13/19 15:06 Vital Signs Reviewed: Yes - [place] Coma Scale Best Eye Response: 4 - Spontaneous Best Motor Response: 6 - Obeys Commands Best Verbal Response: 5 - Oriented Coma Scale Total: 15 Procedures - Sedation Patient Received Moderate/Deep Sedation with Procedure: No Diagnostics - Vital Signs Vital Signs Temp Pulse Resp BP Pulse Ox 09/13/19 15:06 97.7 F 80 16 85/55 98 - Laboratory Lab Statement: Any lab studies that have been ordered have been reviewed, and results considered in the medical decision making process. - CT Brain CT CT Interpretation Completed By: Radiologist Summary of CT Findings: No intracranial mass or hemorrhage is noted. ED physician has reviewed this report. Headache Course/Dx - Course Course Of Treatment: 34 y/o F w hx migraines, prior L shoulder injury pw range of motion or pain. Regarding the left shoulder pain, patient has no new injuries, intermittent paresthesias and pain which are positional. No neck pain. Could have AC separation. Advised to get MRI with orthopedics. regarding migraines, patient has had migraines consistently for over 5 years almost daily. Advise patient to cut down and [id number] medications that she can have an overuse headache. Obtain CT imaging as patient hasn't had any imaging of her head before (and has a history of brain tumors in the family). CT head unremarkable. Patient advised to follow-up with urology. She was given several ostomy bags, will need to get further supplies from her primary care doctor - Diagnoses Provider Diagnoses: Migraine, Left shoulder pain Discharge ED - Sign-Out/Discharge Documenting (check all that apply): Patient Departure - Discharge Plan Condition: Stable Disposition: HOME Prescriptions: Ostomy Access,Filters, Bridges [Filtrodor Pouch Filter] 1 each [facility] ONCE #7 each Meds/Orders/Equipment: Home Care: Ostomy Supplies Location: None Selected Patient Education Materials: Rotator Cuff Injury (ED), Migraine Headache (ED) Referrals: Hardik Farley NP [Primary Care Provider] - Additional Instructions: You were seen in the emergency department for a migraine and shoulder pain. Your head CTdid not show any abnormality. Please follow up with neurology. Please follow-up with orthopedics regarding your shoulder. Please do not take more than the recommended dose of [id number] medications Please follow up with your primary care doctor in next 2-3 days and return to emergency department for worsening or concerning symptoms. It was a pleasure taking care of you today. - Billing Disposition and Condition Condition: STABLE Disposition: Home - Attestation Statements Document Initiated by Breana: Yes Documenting Scribe: Martina Perea Provider For Whom Breana is Documenting (Include Credential): Jigna Kamara MD. Scribe Attestation: Martina Leary, paruled for Jigna Kamara MD. on 09/13/19 at 1722. Scribe Documentation Reviewed: Yes Provider Attestation: The documentation as recorded by the scribeMartina accurately reflects the service I personally performed and the decisions made by Jigna rondon MD. Status of Scribe Document: Viewed
[2019-09-13 16:57] VITALS: BP 85/65
== END 2019-09-13 16:55 | disposition home or self-care (01) ==
LOC: ED 15:03
DX: M25.512 Pain in left shoulder (principal); G43.909 Migraine, unspecified, not intractable, without status migrainosus; M54.2 Cervicalgia; R11.0 Nausea; J45.909 Unspecified asthma, uncomplicated; Z93.3 Colostomy status; Z88.1 Allergy status to other antibiotic agents; F17.210 Nicotine dependence, cigarettes, uncomplicated
CPT/HCPCS: 70450; 99282

== ENCOUNTER 2019-09-23 00:15 | Emergency (ER) | payer OTHER ==
--- NOTE | 2019-09-23 01:26 | ED ---
Skin Complaint - HPI Summary HPI Summary: 34-year-old female presents with lesions to back of left ear that noticed today. She has a had a lesion there for the past 4 years. States that she scratched it a couple days ago and noticed a scab to the area. She noticed that today that it looked like a tick. No surrounding redness. She denies any fevers. She denies any history of MRSA. - History of Current Complaint Chief Complaint: EDRashSkinAbscess Time Seen by Provider: 09/23/19 00:58 Stated Complaint: TICK IN EAR PER PT Pain Intensity: 0 - Additional Pertinent History Primary Care Physician: Hardik Farley - Allergy/Home Medications Allergies/Adverse Reactions: Allergies Allergy/AdvReac Type Severity Reaction Status Date / Time ceftriaxone [From Rocephin] Allergy Itching Verified 09/23/19 00:20 ciprofloxacin [From Cipro] Allergy See Comment Verified 09/23/19 00:20 ofloxacin [From Floxin] Allergy Itching Verified 09/23/19 00:20 PMH/Surg Hx/FS Hx/Imm Hx Endocrine/Hematology History: Reports: Hx Anemia Denies: Hx Anticoagulant Therapy, Hx Blood Disorders, Hx Blood Transfusions, Hx Bone Marrow Disease, Hx Diabetes, Hx Systemic Lupus Erythematosus, Hx Sickle Cell Disease, Hx Thyroid Disease, Hx Unexplained Bleeding, Other Endocrine/ Hematological Disorders Cardiovascular History: Denies: Hx Congestive Heart Failure, Hx Hypertension Respiratory History: Reports: Hx Asthma - PRN INHALERS GI History: Reports: Hx Ileostomy - COLOSTOMY History: Reports: Hx Kidney Stones, Other Problems/Disorders - hx of frequent UTIs Denies: Hx Renal Disease Musculoskeletal History: Reports: Hx Arthritis - LOW BACK, Hx Back Problems, Hx Tendonitis - WRISTS Sensory History: Reports: Hx Contacts or Glasses - INSTRUCTS Denies: Hx Cataracts, Hx Eye Injury, Hx Eye Prosthesis, Hx Glaucoma, Hx Legally Blind, Hx Macular Degeneration, Hx Vision Problem, Hx Deafness, Hx Hearing Aid, Hx Hearing Problem Opthamlomology History: Reports: Hx Contacts or Glasses - INSTRUCTS Denies: Hx Cataracts, Hx Eye Injury, Hx Eye Prosthesis, Hx Glaucoma, Hx Legally Blind, Hx Macular Degeneration, Hx Vision Problem Neurological History: Reports: Hx Spinal Cord Injury Psychiatric History: Reports: Hx Anxiety, Hx Depression, Hx Community Mental Health Tx, Hx Suicide Attempt Denies: Hx Attention Deficit Hyperactivity Disorder, Hx Eating Disorder, Hx Panic Disorder, Hx Post Traumatic Stress Disorder, Hx Inpatient Treatment, Hx Schizophrenia, Hx Bipolar Disorder, Hx of Violent Episodes Against Others, Hx Substance Abuse - Surgical History Surgery Procedure, Year, and Place: 2002 spinal surgery-[facility] [place]. EVACUATION OF EPIDURAL HEMATOMA. colostomy - 4 YEARS AGO. STENT PLACEMENT- RIGHT -[facility] [place]. STATES HAD OTHER SURGERIES - BUT DON'T KNOW WHAT THEY ARE FOR. 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, History Other Infectious Disease - VRE Denies: Traveled Outside the [place] in Last 30 Days - Family History Known Family History: Negative: Blood Disorder - Social History Alcohol Use: Weekly Alcohol Amount: unk Hx Substance Use: No Substance Use Type: Reports: None Substance Use Comment - Amount & Last Used: unk Hx Tobacco Use: Yes Smoking Status (MU): Current Every Day Smoker Type: Cigarettes Amount Used/How Often: 1/2 PPD X 17 YEARS Have You Smoked in the Last Year: Yes Review of Systems Negative: Fever Negative: Chest Pain Negative: Shortness Of Breath Positive: Other - lesion left ear All Other Systems Reviewed And Are Negative: Yes Physical Exam Triage Information Reviewed: Yes Vital Signs On Initial Exam: Initial Vitals Temp Pulse Resp BP Pulse Ox 97.2 F 77 16 125/87 100 09/23/19 00:17 09/23/19 00:17 09/23/19 00:17 09/23/19 00:17 09/23/19 00:17 Vital Signs Reviewed: Yes Appearance: Positive: Well-Appearing Skin: Positive: Warm, Dry, Other - black scab like lesion present on left ear Head/Face: Positive: Normal Head/Face Inspection Eyes: Positive: Normal, EOMI, RAMAKRISHNA, Conjunctiva Clear Respiratory/Lung Sounds: Positive: Clear to Auscultation, Breath Sounds Present Cardiovascular: Positive: Normal, RRR Musculoskeletal: Positive: Normal Neurological: Positive: Normal Psychiatric: Positive: Normal Procedures - Sedation Patient Received Moderate/Deep Sedation with Procedure: No Diagnostics - Vital Signs Vital Signs Temp Pulse Resp BP Pulse Ox 09/23/19 00:17 97.2 F 77 16 125/87 100 - Laboratory Lab Statement: Any lab studies that have been ordered have been reviewed, and results considered in the medical decision making process. Course/Dx - Course Course Of Treatment: 34-year-old female presents with lesions to back of left ear that noticed today. She has a had a lesion there for the past 4 years. States that she scratched it a couple days ago and noticed a scab to the area. She noticed that today that it looked like a tick. No surrounding redness. She denies any fevers. She denies any history of MRSA. On exam has black scab lesions that her left ear. removed part of it and it is just tissue and normal skin underneath. Told keep area clean. patient understands agrees plan. - Differential Diagnoses - Skin Complaint Differential Diagnoses: Abscess, Cellulitis, Tick Born Illness - Diagnoses Provider Diagnoses: Lesion of ear Discharge ED - Sign-Out/Discharge Documenting (check all that apply): Patient Departure - Discharge Plan Condition: Good Disposition: HOME Referrals: Hardik Farley CORRECTIONAL CAPTAIN [Primary Care Provider] - Additional Instructions: no tick was seen wash area with soap and water Return to ED if develop any new or worsening symptoms - Billing Disposition and Condition Condition: GOOD Disposition: Home
[2019-09-23 01:42] VITALS: BP 94/70
== END 2019-09-23 01:35 | disposition home or self-care (01) ==
LOC: ED 00:15
DX: L98.9 Disorder of the skin and subcutaneous tissue, unspecified (principal); D64.9 Anemia, unspecified; J45.909 Unspecified asthma, uncomplicated; F41.9 Anxiety disorder, unspecified; F32.9 Major depressive disorder, single episode, unspecified; F17.210 Nicotine dependence, cigarettes, uncomplicated; Z87.442 Personal history of urinary calculi; Z88.1 Allergy status to other antibiotic agents
CPT/HCPCS: 99281

== ENCOUNTER 2019-09-29 17:33 | Emergency (ER) | payer OTHER ==
[2019-09-29 19:40] LABS: ABS Eosinophils 0.3 10^3/ul (0-0.6); ABS Lymphocytes 2.5 10^3/ul (1.0-4.8); ABS Monocytes 0.7 10^3/ul (0-0.8); ABS Neutrophils 7.1 10^3/ul (1.5-7.7); Eosinophil % 3.1 %; Hematocrit 27 % (35-47); Lymphocyte % 23.3 %; Mean Corpuscular HGB Conc 33 g/dL (31-36); Mean Corpuscular Hemoglobin 26 pg (27-31); Mean Corpuscular Volume 77 fL (80-97); Mean Platelet Volume 8.1 fL (7.4-10.4); Platelet Count 359 10^3/uL (150-450); Red Cell Distribution Width 18 % (10-15); White Blood Count 10.6 10^3/uL (3.5-10.8)
[2019-09-29 19:59] LABS: ALT 9 U/L (7-52); AST 13 U/L (13-39); Albumin 4.1 g/dL (3.2-5.2); Albumin/Globulin Ratio 1.4 (1-3); Alkaline Phosphatase 77 U/L (34-104); Anion Gap 7 mmol/L (2-11); BUN/Creatinine Ratio 23.2 (8-20); Blood Urea Nitrogen 13 mg/dL (6-24); CO2 Carbon Dioxide 22 mmol/L (22-32); Calcium 9.3 mg/dL (8.6-10.3); Chloride 108 mmol/L (101-111); EGFR African American 149.9 (>60); EGFR Non-African American 123.9 (>60); Glucose 94 mg/dL (70-100); Potassium 3.6 mmol/L (3.5-5.0); Sodium 137 mmol/L (135-145); Total Protein 7.1 g/dL (6.4-8.9)
--- NOTE | 2019-09-29 20:33 | ED ---
Complex/Multi-Sys Presentation - HPI Summary HPI Summary: Pt is a 34 y/o F presenting to the ED with a chief complaint of fatigue. She states she went to sleep two days ago around 1900 and woke up today, 09/29/2019, around 0230. She reports a slight dry cough, as well as some chest pain and nausea from anxiety. Her PCP will not prescribe her more colostomy bags as she hasnt been in to see him, but she does not have the means of transportation to get to the office, or the time to get out of work. She is paralyzed from T4 down. She denies fever, headache, sore throat, rhinorrhea, vomiting, lightheadedness, or dizziness. Hx some blood transfusions from being anemic. - History Of Current Complaint Chief Complaint: EDGeneral Time Seen by Provider: 09/29/19 20:18 Hx Obtained From: Patient Onset/Duration: Gradual Onset, Lasting Days, Still Present Timing: Constant, Days Severity Currently: Moderate Severity Initially: Moderate Associated Signs And Symptoms: Positive: Cough, Chest Pain, Nausea. Negative: Dizziness, Vomiting - Allergies/Home Medications Allergies/Adverse Reactions: Allergies Allergy/AdvReac Type Severity Reaction Status Date / Time ceftriaxone [From Rocephin] Allergy Itching Verified 09/29/19 17:52 ciprofloxacin [From Cipro] Allergy See Comment Verified 09/29/19 17:52 ofloxacin [From Floxin] Allergy Itching Verified 09/29/19 17:52 Home Medications: Home Medications Ostomy Supply [Drainable Pouch] 1 each MC ONCE 09/29/19 [History Confirmed 09/29] Ostomy Supply [Natura Durahesive Skin Barrier] 1 each MC ONCE 09/29/19 [History Confirmed 09/29/19] PMH/Surg Hx/FS Hx/Imm Hx Previously Healthy: Yes Endocrine/Hematology History: Reports: Hx Anemia Denies: Hx Anticoagulant Therapy, Hx Blood Disorders, Hx Blood Transfusions, Hx Bone Marrow Disease, Hx Diabetes, Hx Systemic Lupus Erythematosus, Hx Sickle Cell Disease, Hx Thyroid Disease, Hx Unexplained Bleeding, Other Endocrine/ Hematological Disorders Cardiovascular History: Denies: Hx Congestive Heart Failure, Hx Hypertension Respiratory History: Reports: Hx Asthma - PRN INHALERS GI History: Reports: Hx Ileostomy - COLOSTOMY History: Reports: Hx Kidney Stones, Other Problems/Disorders - hx of frequent UTIs Denies: Hx Renal Disease Musculoskeletal History: Reports: Hx Arthritis - LOW BACK, Hx Back Problems, Hx Tendonitis - WRISTS Sensory History: Reports: Hx Contacts or Glasses - INSTRUCTS Denies: Hx Cataracts, Hx Eye Injury, Hx Eye Prosthesis, Hx Glaucoma, Hx Legally Blind, Hx Macular Degeneration, Hx Vision Problem, Hx Deafness, Hx Hearing Aid, Hx Hearing Problem Opthamlomology History: Reports: Hx Contacts or Glasses - INSTRUCTS Denies: Hx Cataracts, Hx Eye Injury, Hx Eye Prosthesis, Hx Glaucoma, Hx Legally Blind, Hx Macular Degeneration, Hx Vision Problem Neurological History: Reports: Hx Spinal Cord Injury Psychiatric History: Reports: Hx Anxiety, Hx Depression, Hx Community Mental Health Tx, Hx Suicide Attempt Denies: Hx Attention Deficit Hyperactivity Disorder, Hx Eating Disorder, Hx Panic Disorder, Hx Post Traumatic Stress Disorder, Hx Inpatient Treatment, Hx Schizophrenia, Hx Bipolar Disorder, Hx of Violent Episodes Against Others, Hx Substance Abuse - Surgical History Surgery Procedure, Year, and Place: 2002 spinal surgery-[facility] [place]. EVACUATION OF EPIDURAL HEMATOMA. colostomy - 4 YEARS AGO. STENT PLACEMENT- RIGHT -[facility] [place]. STATES HAD OTHER SURGERIES - BUT DON'T KNOW WHAT THEY ARE FOR. 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 Negative: Fever Negative: Sore Throat, Nasal Discharge Positive: Chest Pain Positive: Cough Positive: Nausea. Negative: Vomiting Neurological: Negative - lightheadedness, dizziness Negative: Headache Positive: Anxious All Other Systems Reviewed And Are Negative: Yes Physical Exam - Summary Physical Exam Summary: Appearance: Non toxic appearing but somewhat pale woman, lying in bed comfortably Skin: Warm, dry, no obvious rash. There are some small, superficial skin ulcers about the ostomy, in the left groin, and over the left hip. None of these is draining or appear infected. Eyes: sclera anicteric, no conjunctival pallor ENT: mucous membranes moist, pharynx appears normal Neck: Supple, nontender Respiratory: Clear to auscultation, no signs of respiratory distress Cardiovascular: Normal S1, S2. No murmurs. Normal distal pulses in tibial and radial bilaterally. 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 Neurological: A&Ox3, awake and alert, mentation is normal, speech is fluent and appropriate Psychiatric: affect is somewhat depressed. Triage Information Reviewed: Yes Vital Signs On Initial Exam: Initial Vitals Temp Pulse Resp BP Pulse Ox 98.1 F 86 20 114/48 98 09/29/19 17:48 09/29/19 17:48 09/29/19 17:48 09/29/19 17:48 09/29/19 17:48 Vital Signs Reviewed: Yes Procedures - Sedation Patient Received Moderate/Deep Sedation with Procedure: No Diagnostics - Vital Signs Vital Signs Temp Pulse Resp BP Pulse Ox 09/29/19 20:02 98.7 F 83 20 96/60 100 09/29/19 17:48 98.1 F 86 20 114/48 98 - Laboratory Lab Results: Lab Results 09/29/19 09/29/19 Range/Units 19:26 19:26 WBC 10.6 (3.5-10.8) 10^3/uL RBC 3.50 L (3.70-4.87) 10^6 /uL Hgb 9.0 L (12.0-16.0) g/dL Hct 27 L (35-47) % MCV 77 L (80-97) fL MCH 26 L (27-31) pg MCHC 33 (31-36) g/dL RDW 18 H (10-15) % Plt Count 359 (150-450) 10^3/uL MPV 8.1 (7.4-10.4) fL Neut % (Auto) 66.9 % Lymph % (Auto) 23.3 % Saunders % (Auto) 6.3 % Eos % (Auto) 3.1 % Baso % (Auto) 0.4 % Absolute Neuts (auto) 7.1 (1.5-7.7) 10^3/ul Absolute Lymphs (auto) 2.5 (1.0-4.8) 10^3/ul Absolute Monos (auto) 0.7 (0-0.8) 10^3/ul Absolute Eos (auto) 0.3 (0-0.6) 10^3/ul Absolute Basos (auto) 0.0 (0-0.2) 10^3/ul Absolute Nucleated RBC 0.0 10^3/ul Nucleated RBC % 0.0 Sodium 137 (135-145) mmol/L Potassium 3.6 (3.5-5.0) mmol/L Chloride 108 (101-111) mmol/L Carbon Dioxide 22 (22-32) mmol/L Anion Gap 7 (2-11) mmol/L BUN 13 (6-24) mg/dL Creatinine 0.56 (0.51-0.95) mg/dL Est GFR ( Amer) 149.9 (>60) Est GFR (Non-Af Amer) 123.9 (>60) BUN/Creatinine Ratio 23.2 H (8-20) Glucose 94 (70-100) mg/dL Calcium 9.3 (8.6-10.3) mg/dL Total Bilirubin 0.30 (0.2-1.0) mg/dL AST 13 (13-39) U/L ALT 9 (7-52) U/L Alkaline Phosphatase 77 (34-104) U/L Total Protein 7.1 (6.4-8.9) g/dL Albumin 4.1 (3.2-5.2) g/dL Globulin 3.0 (2-4) g/dL Albumin/Globulin Ratio 1.4 (1-3) Result Diagrams: 09/29/19 19:26 09/29/19 19:26 Lab Statement: Any lab studies that have been ordered have been reviewed, and results considered in the medical decision making process. - Radiology CXR Radiology Interpretation Completed By: ED Physician Summary of Radiographic Findings: No acute process, pending official radiology report. Complex Multi-Symp Course/Dx Course Of Treatment: Pt is a 34 y/o F presenting to the ED with a chief complaint of fatigue. She states she went to sleep two days ago around 1900 and woke up today, 09/29/2019, around 0230. She reports a slight dry cough, as well as some chest pain and nausea from anxiety. She denies fever, headache, sore throat, rhinorrhea, vomiting, lightheadedness, or dizziness. On exam, pt is a non-toxic but somewhat pale appearing woman, she has spastic paraparesis with both legs chronically contracted, and her affect is somewhat depressed. CXR shows no acute process, pending official radiology report. Pt's lab results WNL. Hgb is somewhat low. I discussed results with the pt, instructed her to f/ u with her PCP as soon as she's able to. She will be d/c'ed with dx of weakness and anemia. She's stable and agreeable with this plan. - Diagnoses Provider Diagnoses: Weakness, Anemia Discharge ED - Sign-Out/Discharge Documenting (check all that apply): Patient Departure - Discharge Plan Condition: Stable Disposition: HOME Patient Education Materials: Weakness (ED), Anemia (ED) Referrals: [facility] [Outside] Additional Instructions: While we did not find any acute serious illness tonight you of course have some chronic, longstanding problems with skin and ostomy care. Mobility is obviously a concern for you, so I am thinking it might be helpful to work with the staff at the [facility] for the moment, here at the hospital and close to you. They should be able to connect you with the wound care and ostomy care nurses here at the hospital as well. Your underlying anemia is a bit worse tonight, but not bad enough to require transfusion, so that will need to be followed as well. - Billing Disposition and Condition Condition: STABLE Disposition: Home - Attestation Statements Document Initiated by Breana: Yes Documenting Scribe: Martina Perea Provider For Whom Breana is Documenting (Include Credential): Schuyler Jackson MD. Scribe Attestation: I, Martina Perea, fidelibed for Schuyler Jackson MD. on 09/30/19 at 0541. Scribe Documentation Reviewed: Yes Provider Attestation: The documentation as recorded by the scribe, Martina Perea accurately reflects the service I personally performed and the decisions made by me, Schuyler Jackson MD. Status of Scribe Document: Viewed
[2019-09-29 21:25] LABS: C Reactive Protein 5.35 mg/L (<8.01)
[2019-09-29 21:26] LABS: HCG Pregnancy < 0.60 mIU/mL
[2019-09-29 22:35] VITALS: BP 90/47
== END 2019-09-29 22:34 | disposition home or self-care (01) ==
LOC: ED 17:33
DX: R53.1 Weakness (principal); D64.9 Anemia, unspecified; F41.9 Anxiety disorder, unspecified; F32.9 Major depressive disorder, single episode, unspecified; F17.210 Nicotine dependence, cigarettes, uncomplicated; G83.9 Paralytic syndrome, unspecified; Z95.5 Presence of coronary angioplasty implant and graft; Z88.1 Allergy status to other antibiotic agents
CPT/HCPCS: 36415; 71046; 80053; 84702; 85025; 86140; 99283

== ENCOUNTER 2019-11-13 11:43 | Emergency (ER) | payer OTHER ==
--- OUTSIDE RECORDS SUMMARY | 2019-11-13 11:58 | XMS REPORT | Continuity of Care Document ---
:1985 External Reference #:[id number] Author Name Leticia Armando M.D. (transmitted by agent of provider Rose Marie Rodgers ) Address [address], [place] [address] Care Team Providers Name Role Phone Leticia Armando MD - Internal Care Team Information Household Appliances Salesperson Medicine Problems Active Problems Provider Date Iron deficiency anemia Onset: 08/17/2016 History of pressure ulcer Onset: 08/08/2016 Uncomplicated mild persistent asthma Onset: 07/20/2016 Mixed anxiety and depressive disorder Onset: 11/11/2015 Paraplegia Onset: 10/21/2015 Tobacco user Onset: 10/21/2015 Chronic back pain Onset: Kidney stone Onset: Osteoarthritis Onset: Scoliosis deformity of spine Onset: Neurogenic bladder Onset: Colostomy present Onset: Social History Type Date Description Comments Sex Unknown Tobacco Use Start: Unknown Heavy tobacco smoker (more than 10 cigarettes/day) Smoking Status Reviewed: 10/22/19 Heavy tobacco smoker (more than 10 cigarettes/day) ETOH Use Currently consumes 1-2 mixed drinks alcohol every 2 weeks Tobacco Use Start: Unknown Heavy tobacco smoker (more than 10 cigarettes/day) Recreational Drug Use Denies Drug Use Allergies, Adverse Reactions, Alerts Active Allergies Reaction Severity Comments Date Baclofen GI Reaction Moderate 12/18/2016 Gabapentin GI Reaction Moderate 12/18/2016 Ciloxan Dermatologic Reaction 10/21/2015 Medications Active Medications SIG Qnty Indications Ordering Provider Date Fit Flex Use 4-6 per day 180units N31.2 Leticia Armando, 10/22/2019 Incontinence M.D. Underwear For Women Feosol 1 by mouth every 30tabs D64.9 Leticia Armando, 10/22/2019 200(65Fe) mg day M.D. Tablets Ibuprofen Leticia Armando, 10/22/2019 200mg M.D. Capsules Yassine-Fit Natura use as directed 10units Hardik Farley NP 05/20/2019 Drainable Pouch Proair HFA 2 puffs every 4 8.500gm Leticia Armando, 10/02/2018 hours as needed M.D. 108(90Base) mcg/Act Aerosol Convatec 2 1/4 change daily 1Box Leticia Armando, 10/02/2018 Drainage Bags M.D. Misc Convatec 2 1/4 change daily 1Box Leticia Armando, 10/02/2018 Wafers M.D. [facility] [place] Hydroxyzine HCL take 1 tablet by 120tabs Leticia Armando, 25mg mouth up to M.D. Tablets every 6 hours as needed for anxiety History Medications Venlafaxine HCL ER 1 by mouth 30caps F41.9 Hardik Farley NP 07/15/2019 - 75mg every day 10/22/2019 Caps ER 24HR Immunizations Description No Information Available Vital Signs Date Vital Result Comment 10/22/2019 2:40pm Height 67 inches 5'7" Weight 124.00 lb chair weighs 42lbs Heart Rate 84 /min BP Systolic 106 mmHg BP Diastolic 52 mmHg O2 % BldC Oximetry 100 % BMI (Body Mass Index) 19.4 kg/m2 10/02/2018 3:22pm Heart Rate 74 /min BP Systolic 105 mmHg BP Diastolic 56 mmHg Body Temperature 98.1 F O2 % BldC Oximetry 99 % Results Test Acquired Date Facility Test Result H/L Range Note CBC Auto 09/29/2019 [facility] White Blood 10.6 10^3/uL Normal 3.5-10.[address] [place] [address] [phone] Red Blood Count 3.50 10^6/uL Low 3.70-4.87 Hemoglobin 9.0 g/dL Low 12.0-16.0 Hematocrit 27 % Low 35-47 Mean Corpuscular Volume 77 fL Low 80-97 Mean Corpuscular Hemoglobin 26 pg Low 27-31 Mean Corpuscular HGB Conc 33 g/dL Normal 31-36 Red Cell Distribution Width 18 % High 10-15 Platelet Count 359 10^3/uL Normal 150-450 Mean Platelet Volume 8.1 fL Normal 7.4-10.4 Abs Neutrophils 7.1 10^3/uL Normal 1.5-7.7 Abs Lymphocytes 2.5 10^3/uL Normal 1.0-4.8 Abs Monocytes 0.7 10^3/uL Normal 0-0.8 Abs Eosinophils 0.3 10^3/uL Normal 0-0.6 Abs Basophils 0.0 10^3/uL Normal 0-0.2 Abs Nucleated RBC 0.0 10^3/uL Granulocyte % 66.9 % Lymphocyte % 23.3 % Monocyte % 6.3 % Eosinophil % 3.1 % Basophil % 0.4 % Nucleated Red Blood Cells % 0.0 Comp Metabolic 09/29/2019 [facility] Sodium 137 mmol/L Normal 135-[address] [place] [address] [phone] Potassium 3.6 mmol/L Normal 3.5-5.0 Chloride 108 mmol/L Normal 101-111 Co2 Carbon Dioxide 22 mmol/L Normal 22-32 Anion Gap 7 mmol/L Normal 2-11 Glucose 94 mg/dL Normal 70-100 Blood Urea Nitrogen 13 mg/dL Normal 6-24 Creatinine 0.56 mg/dL Normal 0.51-0.95 BUN/Creatinine Ratio 23.2 High 8-20 Calcium 9.3 mg/dL Normal 8.6-10.3 Total Protein 7.1 g/dL Normal 6.4-8.9 Albumin 4.1 g/dL Normal 3.2-5.2 Globulin 3.0 g/dL Normal 2-4 Albumin/Globulin Ratio 1.4 Normal 1-3 Total Bilirubin 0.30 mg/dL Normal 0.2-1.0 Alkaline Phosphatase 77 U/L Normal 34-104 Alt 9 U/L Normal 7-52 Ast 13 U/L Normal 13-39 Egfr Non- 123.9 >60 Egfr 149.9 >60 1 Laboratory test 09/29/2019 [facility] C Reactive 5.35 mg/L Normal <8.[address] [place] [address] [phone] HCG < 0.60 mIU/mL 2 1 Because ethnic data is not always readily available, this report includes an eGFR for both -Americans and non- Americans. The National Kidney Disease Education Program (NKDEP) does not endorse the use of the MDRD equation for patients that are not between the ages of 18 and 70, are , have extremes of body size, muscle mass, or nutritional status, or are non- or non-. According to the National Kidney Foundation, irrespective of diagnosis, the stage of the disease is based on the level of kidney function: Stage Description GFR(mL/min/1.73 m(2)) 1 Kidney damage with normal or decreased GFR 90 2 Kidney damage with mild decrease in GFR 60-89 3 Moderate decrease in GFR 30-59 4 Severe decrease in GFR 15-29 5 Kidney failure <15 (or dialysis) 2 <5.0 Negative 5.0 - 25.0 Indeterminate (Repeat testing recommended after 72 hours) >25.0 Positive Perimenopausal women can display HCG levels of up to 20 mIU/mL Procedures Description No Information Available Medical Devices Description No Information Available Encounters Description No Information Available Assessments Date Code Description Provider 10/22/2019 Z93.3 Colostomy status Leticia Armando M.D. 10/22/2019 D64.9 Anemia, unspecified Leticia Armando M.D. 10/22/2019 M25.512 Pain in left shoulder Leticia Armando M.D. 10/22/2019 G82.20 Paraplegia, unspecified Leticia Armando M.D. 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 classified 10/22/2019 F41.9 Anxiety disorder, unspecified Leticia Armando M.D. 10/22/2019 J45.909 Unspecified asthma, uncomplicated Leticia Armando M.D. Plan of Treatment Future Appointment(s):04/21/2020 2:40 pm - Leticia Armando M.D. at [facility]10/22/2019 - Leticia Armando M.D.Z93.3 Colostomy jujthmC01.9 Anemia, unspecifiedNew Medication:Feosol 200(65 Fe) mg - 1 by mouth every dayComments:Start on ironRepeat blood count in 1 month - home blood drawFollow up:6 [id number] Pain in left shoulderComments:Hopefully shoulder will improve with change in work [id number] Paraplegia, unspecifiedNew Orders :Roho cushion, Ordered: 10/22/19Manual Wheelchair, Ultralight, Without Arm Rests , Ordered: 10/22/19Comments:You need a new wheelchairMaximum Mobility or [place] - we will work on thisN31.2 Flaccid neuropathic bladder, not elsewhere classifiedNew Medication:Fit Flex Incontinence Underwear For Women - Use 4-6 per dayF41.9 Anxiety disorder, [id number] Unspecified asthma, uncomplicated Functional Status Description No Information Available Mental Status Description No Information Available Referrals Description No Information Available
[2019-11-13 13:49] LABS: ABS Basophils 0.1 10^3/ul (0-0.2); ABS Eosinophils 0.5 10^3/ul (0-0.6); ABS Monocytes 0.7 10^3/ul (0-0.8); ABS Neutrophils 7.4 10^3/ul (1.5-7.7); Eosinophil % 4.9 %; Hematocrit 33 % (35-47); Hemoglobin 10.6 g/dL (12.0-16.0); Lymphocyte % 18.9 %; Mean Corpuscular HGB Conc 32 g/dL (31-36); Mean Corpuscular Hemoglobin 26 pg (27-31); Mean Corpuscular Volume 82 fL (80-97); Mean Platelet Volume 7.8 fL (7.4-10.4); Platelet Count 424 10^3/uL (150-450); Red Blood Count 4.02 10^6 /uL (3.70-4.87); Red Cell Distribution Width 23 % (10-15); White Blood Count 10.8 10^3/uL (3.5-10.8)
[2019-11-13 13:58] LABS: Albumin 4.2 g/dL (3.2-5.2); Albumin/Globulin Ratio 1.4 (1-3); BUN/Creatinine Ratio 17.7 (8-20); Calcium 9.5 mg/dL (8.6-10.3); EGFR African American 133.3 (>60); EGFR Non-African American 110.2 (>60); Globulin 2.9 g/dL (2-4); Potassium 3.7 mmol/L (3.5-5.0); Total Bilirubin 0.2 mg/dL (0.2-1.0); Total Protein 7.1 g/dL (6.4-8.9)
[2019-11-13 14:05] LABS: HCG Pregnancy 43.43 mIU/mL
[2019-11-13 16:16] VITALS: BP 100/46
--- NOTE | 2019-11-14 07:27 | ED ---
- HPI Summary HPI Summary: Shows a 34-year-old female presenting to the ED with concern for miscarriage. Patient states she is 6 weeks late on her period and believes she may be . Endorses spotting this morning. Denies any blood clots. Endorses some "abdominal pressure" to lower abdomen. Patient is a paraplegic and states she is unable to feel any cramping or severe pain. History of 2 miscarriages. Patient is tearful on exam and is requesting a ultrasound. Denies any other concerns or symptoms. Denies any fevers, sweats, chills. - History of Current Complaint Chief Complaint: EDVaginalBleeding Stated Complaint: GENERAL PER PT Time Seen by Provider: 11/13/19 13:01 Hx Obtained From: Patient Chief Complaint: Vaginal Bleeding Onset/Duration: Started Hours Ago Timing: Constant Severity: Mild Current Severity: Mild Pain Intensity: 0 Location of Pain: Other: - lower abd pressure Character: None Associated Signs and Symptoms: Positive: Negative - Additional Pertinent History Primary Care Physician: Hardik Farley - Allergies/Home Medications Allergies/Adverse Reactions: Allergies Allergy/AdvReac Type Severity Reaction Status Date / Time ceftriaxone [From Rocephin] Allergy Itching Verified 11/13/19 11:52 ciprofloxacin [From Cipro] Allergy See Comment Verified 11/13/19 11:52 ofloxacin [From Floxin] Allergy Itching Verified 11/13/19 11:52 Home Medications: Home Medications Ostomy Access,Filters, Bridges [Filtrodor Pouch Filter] 1 each MC ONCE #7 each 09/13/19 [Rx Confirmed 11/13/19] Ostomy Supply [Drainable Pouch] 1 each MC ONCE 09/29/19 [History Confirmed 11/12] Ostomy Supply [Natura Durahesive Skin Barrier] 1 each MC ONCE 09/29/19 [History Confirmed 11/13/19] Albuterol Sulfate [Albuterol Sulfate Hfa] 2 puff INH Q4HR PRN 11/13/19 [History Confirmed 11/13/19] hydrOXYzine HCL TAB* [Atarax 25 MG TAB*] 1 tab PO Q6H PRN 11/13/19 [History Confirmed 11/13/19] PMH/Surg Hx/FS Hx/Imm Hx Previously Healthy: Yes Endocrine/Hematology History: Reports: Hx Anemia Denies: Hx Anticoagulant Therapy, Hx Blood Disorders, Hx Blood Transfusions, Hx Bone Marrow Disease, Hx Diabetes, Hx Systemic Lupus Erythematosus, Hx Sickle Cell Disease, Hx Thyroid Disease, Hx Unexplained Bleeding, Other Endocrine/ Hematological Disorders Cardiovascular History: Denies: Hx Congestive Heart Failure, Hx Hypertension Respiratory History: Reports: Hx Asthma - PRN INHALERS GI History: Reports: Hx Ileostomy - COLOSTOMY History: Reports: Hx Kidney Stones, Other Problems/Disorders - hx of frequent UTIs Denies: Hx Renal Disease Musculoskeletal History: Reports: Hx Arthritis - LOW BACK, Hx Back Problems, Hx Tendonitis - WRISTS Sensory History: Reports: Hx Contacts or Glasses - INSTRUCTS Denies: Hx Cataracts, Hx Eye Injury, Hx Eye Prosthesis, Hx Glaucoma, Hx Legally Blind, Hx Macular Degeneration, Hx Vision Problem, Hx Deafness, Hx Hearing Aid, Hx Hearing Problem Opthamlomology History: Reports: Hx Contacts or Glasses - INSTRUCTS Denies: Hx Cataracts, Hx Eye Injury, Hx Eye Prosthesis, Hx Glaucoma, Hx Legally Blind, Hx Macular Degeneration, Hx Vision Problem Neurological History: 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ACUATION OF EPIDURAL HEMATOMA. colostomy - 4 YEARS AGO. [place] [place] STATES HAD OTHER SURGERIES - BUT DON'T KNOW WHAT THEY ARE FOR. 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, History Other Infectious Disease - VRE Denies: Traveled Outside the [place] in Last 30 Days - Family History Known Family History: Negative: Blood Disorder - Social History Occupation: Unemployed Lives: With Family Alcohol Use: Occasionally Alcohol Amount: unk Hx Substance Use: No Substance Use Type: Reports: None Substance Use Comment - Amount & Last Used: unk Hx Tobacco Use: Yes Smoking Status (MU): Current Every Day Smoker Type: Cigarettes Amount Used/How Often: 1/2 PPD X 17 YEARS Have You Smoked in the Last Year: Yes Review of Systems Negative: Fever, Chills, Fatigue, Skin Diaphoresis Negative: Palpitations, Chest Pain Negative: Shortness Of Breath, Cough Positive: Abdominal Pain - abd pressure. Negative: Vomiting, Diarrhea, Nausea Negative: Arthralgia, Myalgia Skin: Negative All Other Systems Reviewed And Are Negative: Yes Physical Exam - Physical Exam Triage Information Reviewed: Yes Vital Signs Reviewed: Yes Appearance: Positive: Well-Appearing, Well-Nourished Skin: Positive: Warm, Skin Color Reflects Adequate Perfusion Head/Face: Positive: Normal Head/Face Inspection Eyes: Positive: EOMI, RAMAKRISHNA, Conjunctiva Clear Neck: Positive: Supple, No Lymphadenopathy Respiratory/Lung Sounds: Positive: Clear to Auscultation, Breath Sounds Present Cardiovascular: Positive: Pulses are Symmetrical in both Upper and Lower Extremities Musculoskeletal: Positive: Strength/ROM Intact Neurological: Positive: Speech Normal Psychiatric: Positive: Other - patient upset with provider for not obtaining US on arrival to the ED - otherwise cooperative Procedures - Sedation Patient Received Moderate/Deep Sedation with Procedure: No Diagnostics - Vital Signs Vital Signs Temp Pulse Resp BP Pulse Ox 11/13/19 16:15 98.7 F 76 16 100/46 99 11/13/19 11:49 97.4 F 79 16 107/78 100 - Laboratory Lab Results: Lab Results 11/13/19 11/13/19 Range/Units 13:30 13:30 WBC 10.8 (3.5-10.8) 10^3/uL RBC 4.02 (3.70-4.87) 10^6 /uL Hgb 10.6 L (12.0-16.0) g/dL Hct 33 L (35-47) % MCV 82 (80-97) fL MCH 26 L (27-31) pg MCHC 32 (31-36) g/dL RDW 23 H (10-15) % Plt Count 424 (150-450) 10^3/uL MPV 7.8 (7.4-10.4) fL Neut % (Auto) 68.9 % Lymph % (Auto) 18.9 % Patrick % (Auto) 6.3 % Eos % (Auto) 4.9 % Baso % (Auto) 1.0 % Absolute Neuts (auto) 7.4 (1.5-7.7) 10^3/ul Absolute Lymphs (auto) 2.0 (1.0-4.8) 10^3/ul Absolute Monos (auto) 0.7 (0-0.8) 10^3/ul Absolute Eos (auto) 0.5 (0-0.6) 10^3/ul Absolute Basos (auto) 0.1 (0-0.2) 10^3/ul Absolute Nucleated RBC 0.0 10^3/ul Nucleated RBC % 0.0 Hem Pathologist Commnt Sodium 137 (135-145) mmol/L Potassium 3.7 (3.5-5.0) mmol/L Chloride 110 (101-111) mmol/L Carbon Dioxide 22 (22-32) mmol/L Anion Gap 5 (2-11) mmol/L BUN 11 (6-24) mg/dL Creatinine 0.62 (0.51-0.95) mg/dL Est GFR ( Amer) 133.3 (>60) Est GFR (Non-Af Amer) 110.2 (>60) BUN/Creatinine Ratio 17.7 (8-20) Glucose 92 (70-100) mg/dL Calcium 9.5 (8.6-10.3) mg/dL Total Bilirubin 0.20 (0.2-1.0) mg/dL AST 16 (13-39) U/L ALT 13 (7-52) U/L Alkaline Phosphatase 91 (34-104) U/L Total Protein 7.1 (6.4-8.9) g/dL Albumin 4.2 (3.2-5.2) g/dL Globulin 2.9 (2-4) g/dL Albumin/Globulin Ratio 1.4 (1-3) Beta HCG, Quant 43.43 mIU/mL Result Diagrams: 11/13/19 13:30 11/13/19 13:30 Lab Statement: Any lab studies that have been ordered have been reviewed, and results considered in the medical decision making process. Course/Dx - Course Course Of Treatment: This patient's evaluated for threatened . HCG level is 42. Other labs WNL. Patient states she is spotting continuously, but does not feel like her menses. Chance of per patient. TVUS obtained which shows no evidence of IUP. Discussed with patient she will need f.u with OBGYN in a few days for a repeat HCG. - Differential Diagnosis/HQI/PQRI: Other: - pergnancy, threatened , early , menses - Diagnoses Provider Diagnoses: Vaginal bleeding, Pelvic pain with positive beta-human chorionic gonadotropin ( BhCG) in female Discharge ED - Sign-Out/Discharge Documenting (check all that apply): Patient Departure - Discharge Plan Condition: Stable Disposition: HOME Referrals: Amanda Del Real MD [Medical Doctor] - Hardik Farley NP [Primary Care Provider] - Additional Instructions: Please follow up with OBGYN for a follow up HCG level - Billing Disposition and Condition Condition: STABLE Disposition: Home
== END 2019-11-13 16:15 | disposition home or self-care (01) ==
LOC: ED 11:43
DX: N93.9 Abnormal uterine and vaginal bleeding, unspecified (principal); R10.2 Pelvic and perineal pain; Z32.01 Encounter for pregnancy test, result positive; J45.909 Unspecified asthma, uncomplicated; Z79.51 Long term (current) use of inhaled steroids; Z87.440 Personal history of urinary (tract) infections; Z93.3 Colostomy status; Z88.1 Allergy status to other antibiotic agents; F17.210 Nicotine dependence, cigarettes, uncomplicated
CPT/HCPCS: 36415; 76817; 80053; 84702; 85025; 85060; 99282

== ENCOUNTER 2019-12-15 21:24 | Emergency (ER) | payer OTHER ==
--- NOTE | 2019-12-15 21:40 | ED ---
Psychiatric Complaint - HPI Summary HPI Summary: 34 y/o paraplegic F brought in by EMS to [facility] accompanied by law enforcement on 9.41 status. Patient has coworkers who have tested positive for COVID19. Patient wrote out her wishes if she were to get the virus. Patient's neighbor was visiting in her house today. The neighbor was concerned about the notes written by the patient, thought they were suicide notes, and called police. Police brought patient to the ED. Patient is able to demonstrate on her mobile phone 2 handwritten pages of notes of her wishes in case she were to get COVID19 and unable to speak for herself. There is no obvious interest of dying or suicide in these notes. Patient denies depression. She admits to thinking about hurting herself all the time but has no plans to act on it. She has no intent to her herself because of her children. She has tried hurting herself once in the past when her left her. PMHx significant for UTI, colostomy , anemia, GERD, anxiety. Medications reviewed. Allergies noted. - History Of Current Complaint Time Seen by Provider: 12/15/19 21:36 Hx Obtained From: Patient, Other: - police Onset/Duration: Still Present Timing: Constant Aggravating Factor(s): Nothing Alleviating Factor(s): Nothing Has Suicidal: Denies: Thoughts - Allergies/Home Medications Allergies/Adverse Reactions: Allergies Allergy/AdvReac Type Severity Reaction Status Date / Time ceftriaxone [From Rocephin] Allergy Itching Verified 11/13/19 11:52 ciprofloxacin [From Cipro] Allergy See Comment Verified 11/13/19 11:52 ofloxacin [From Floxin] Allergy Itching Verified 11/13/19 11:52 Home Medications: Home Medications Ostomy Access,Filters, Bridges [Filtrodor Pouch Filter] 1 each MC ONCE #7 each 09/13/19 [Rx Confirmed 12/15/19] Ostomy Supply [Drainable Pouch] 1 each MC ONCE 09/29/19 [History Confirmed 12/14] Ostomy Supply [Natura Durahesive Skin Barrier] 1 each MC ONCE 09/29/19 [History Confirmed 12/15/19] Albuterol Sulfate [Albuterol Sulfate Hfa] 2 puff INH Q4HR PRN 11/13/19 [History Confirmed 12/15/19] hydrOXYzine HCL TAB* [Atarax 25 MG TAB*] 25 mg PO Q6H PRN 11/13/19 [History Confirmed 12/15/19] PMH/Surg Hx/FS Hx/Imm Hx Endocrine/Hematology History: Reports: Hx Anemia Denies: Hx Anticoagulant Therapy, Hx Blood Disorders, Hx Blood Transfusions, Hx Bone Marrow Disease, Hx Diabetes, Hx Systemic Lupus Erythematosus, Hx Sickle Cell Disease, Hx Thyroid Disease, Hx Unexplained Bleeding, Other Endocrine/ Hematological Disorders Cardiovascular History: Denies: Hx Hypertension Respiratory History: Reports: Hx Asthma - PRN INHALERS GI History: Reports: Hx Ileostomy - COLOSTOMY History: Reports: Hx Kidney Stones, Other Problems/Disorders - hx of frequent UTIs Musculoskeletal History: Reports: Hx Arthritis - LOW BACK, Hx Back Problems, Hx Tendonitis - WRISTS Sensory History: Reports: Hx Contacts or Glasses - INSTRUCTS Denies: Hx Cataracts, Hx Eye Injury, Hx Eye Prosthesis, Hx Glaucoma, Hx Legally Blind, Hx Macular Degeneration, Hx Vision Problem, Hx Deafness, Hx Hearing Aid, Hx Hearing Problem Opthamlomology History: Reports: Hx Contacts or Glasses - INSTRUCTS Denies: Hx Cataracts, Hx Eye Injury, Hx Eye Prosthesis, Hx Glaucoma, Hx Legally Blind, Hx Macular Degeneration, Hx Vision Problem Neurological History: Reports: Hx Spinal Cord Injury Psychiatric History: Reports: Hx Anxiety, Hx Depression, Hx Community Mental Health Tx, Hx Suicide Attempt Denies: Hx Attention Deficit Hyperactivity Disorder, Hx Eating Disorder, Hx Panic Disorder, Hx Post Traumatic Stress Disorder, Hx Inpatient Treatment, Hx Schizophrenia, Hx Bipolar Disorder, Hx of Violent Episodes Against Others, Hx Substance Abuse - Surgical History Surgical History: Yes Surgery Procedure, Year, and Place: 2002 spinal surgery-[facility] [place]. EVACUATION OF EPIDURAL HEMATOMA. colostomy - 4 YEARS AGO. STENT PLACEMENT- RIGHT -[facility] [place]. STATES HAD OTHER SURGERIES - BUT DON'T KNOW WHAT THEY ARE FOR. HISTORY OF C- SECTIONS. 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, History Other Infectious Disease - VRE - Family History Known Family History: Positive: Cardiac Disease - [place] uncle, Other - cancer aunt - Social History Alcohol Use: Occasionally Hx Substance Use: No Substance Use Type: Reports: None Substance Use Comment - Amount & Last Used: unk Hx Tobacco Use: Yes Smoking Status (MU): Current Every Day Smoker Type: Cigarettes Amount Used/How Often: 1/2 PPD X 17 YEARS Have You Smoked in the Last Year: Yes Review of Systems - ROS Summary Review of Systems Summary: Home Medications Medication Instructions Recorded Confirmed Type Ostomy Access,Filters, Bridges 1 each ONCE #7 each 09/13/19 12/15/19 Rx [Filtrodor Pouch Filter] Ostomy Supply [Drainable Pouch] 1 each MC ONCE 09/29/19 12/15/19 History Ostomy Supply [Natura Durahesive 1 each MC ONCE 09/29/19 12/15/19 History Skin Barrier] Albuterol Sulfate [Albuterol 2 puff INH Q4HR PRN 11/13/19 12/15/19 History Sulfate Hfa] hydrOXYzine HCL TAB* [Atarax 25 MG 25 mg PO Q6H PRN 11/13/19 12/15/19 History TAB*] Negative: Fever Positive: Other - NEG: SI. Negative: Depressed All Other Systems Reviewed And Are Negative: Yes Physical Exam - Summary Physical Exam Summary: General: Well-developed, Well-nourished FEMALE. No acute distress. HEENT: Normocephalic, Atraumatic. Eyes: Conjuctiva normal, PERRL. Oropharynx: Clear, mucous membranes moist, (-) exudates. Neck: Soft, FROM, (-) lymphadenopathy, (-) thyromegaly, (-) JVD. Cardiovascular: Normal sinus rhythm, (-) murmur. Lungs: Clear to auscultation bilaterally (-) wheezes, (-) rales, (-) rhonchi. Abdomen: Soft, non-tender, non-distended, (-) organomegaly, normal bowel sounds. Back: (-) CVA tenderness Extremities: No edema. Skin: Warm, dry, (-) rash. Neuro: Alert and oriented x3, She is paralyzed from the waist down. Psychiatric: Mood normal, slightly odd affect. She adamantly denies any SI. Triage Information Reviewed: Yes Vital Signs Reviewed: Yes Procedures - Sedation Patient Received Moderate/Deep Sedation with Procedure: No Diagnostics - Laboratory Result Diagrams: 12/15/19 22:02 12/15/19 22:02 Lab Statement: Any lab studies that have been ordered have been reviewed, and results considered in the medical decision making process. Course/Dx - Course Course Of Treatment: 34-year-old female presents for mental health evaluation. Patient states she was showing her neighbor to pages of handwritten instructions should she get the Covid and not be able to talk for herself. Patient states she is not thinking about dying or hurting herself but she is preparing to go back to work and has heard that 2 people where she works have tested positive for covid-19. Neighbor called the police and she was brought in for mental health evaluation. 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 Has her service dog with her. Patient shows aresult of her written notes upon arrival. She strongly denies any intent to hurt herself. She does state that she is getting a little cooped up being in the house during less pandemic. He is anxious to get back to work. States she would never hurt herself because she has her dog and her children. Patient has no significant abnormalities on physical or workup. Discharged home. Follow-up with PCP. Follow-up sooner for any worsening symptoms. - Differential Dx/Clinical Impression Provider Diagnosis: Anxiety disorder, unspecified Discharge ED - Sign-Out/Discharge Documenting (check all that apply): Patient Departure - Discharge Plan Condition: Stable Disposition: HOME Patient Education Materials: Anxiety (ED) Referrals: Leticia Armando MD [Primary Care Provider] - 3 Days Additional Instructions: Please follow up with your primary care physician within three days. Please return to the Emergency Department for any new or worsening symptoms. - Billing Disposition and Condition Condition: STABLE Disposition: Home - Attestation Statements Document Initiated by Scribe: Yes Documenting Scribe: Brittany Partida Provider For Whom Breana is Documenting (Include Credential): Diana Rasmussen MD Scribe Attestation: Sapphire, Brittany Partida, scribed for Diana Rasmussen MD on 12/16/19 at 0423. Scribe Documentation Reviewed: Yes Provider Attestation: The documentation as recorded by the scribeBrittany accurately reflects the service I personally performed and the decisions made by me, Diana Rasmussen MD Status of Scribe Document: Viewed
[2019-12-15 22:09] LABS: ABS Basophils 0.1 10^3/ul (0-0.2); ABS Eosinophils 0.2 10^3/ul (0-0.6); ABS Lymphocytes 1.4 10^3/ul (1.0-4.8); ABS Monocytes 0.3 10^3/ul (0-0.8); ABS Neutrophils 6.3 10^3/ul (1.5-7.7); Hematocrit 33 % (35-47); Hemoglobin 11.2 g/dL (12.0-16.0); Lymphocyte % 17.4 %; Mean Corpuscular HGB Conc 34 g/dL (31-36); Mean Corpuscular Hemoglobin 29 pg (27-31); Mean Corpuscular Volume 85 fL (80-97); Mean Platelet Volume 7.7 fL (7.4-10.4); Platelet Count 461 10^3/uL (150-450); Red Blood Count 3.91 10^6 /uL (3.70-4.87); Red Cell Distribution Width 21 % (10-15); White Blood Count 8.3 10^3/uL (3.5-10.8)
[2019-12-15 22:24] LABS: Albumin 4.4 g/dL (3.2-5.2); Anion Gap 8 mmol/L (2-11); CO2 Carbon Dioxide 20 mmol/L (22-32); Calcium 9.9 mg/dL (8.6-10.3); Chloride 109 mmol/L (101-111); Potassium 3.7 mmol/L (3.5-5.0); Sodium 137 mmol/L (135-145)
[2019-12-15 22:30] LABS: ALT 11 U/L (7-52); AST 15 U/L (13-39); Albumin/Globulin Ratio 1.4 (1-3); Alkaline Phosphatase 77 U/L (34-104); BUN/Creatinine Ratio 24.2 (8-20); Blood Urea Nitrogen 15 mg/dL (6-24); EGFR African American 133.3 (>60); EGFR Non-African American 110.2 (>60); Globulin 3.2 g/dL (2-4); Glucose 88 mg/dL (70-100); Total Protein 7.6 g/dL (6.4-8.9)
[2019-12-15 22:31] LABS: Acetaminophen < 15 mcg/mL; Alcohol < 10 mg/dL (<10); Salicylate < 2.50 mg/dL (<30)
[2019-12-15 22:34] LABS: HCG Pregnancy < 0.60 mIU/mL
[2019-12-15 22:44] LABS: TSH (Thyroid Stimulating Horm) 0.31 mcIU/mL (0.34-5.60)
--- OUTSIDE RECORDS SUMMARY | 2019-12-15 22:45 | XMS REPORT | Continuity of Care Document ---
:1985 External Reference #:[id number] Author Name Leticia Armando M.D. (transmitted by agent of provider Sharda Soliman) Address [address], [place] [address] Care Team Providers Name Role Phone Leticia Armando MD - Internal Care Team Information Employee Benefits Administrator [phone] Medicine Problems Active Problems Provider Date Iron [...] (more than 10 cigarettes/day) Smoking Status Reviewed: 11/19/19 Heavy tobacco smoker (more than 10 cigarettes/day) [...] Medications SIG Qnty Indications Ordering Provider Date Famotidine 1 by mouth once 60tabs R12 Leticia Armando, 11/19/2019 20mg or twice daily M.D. Tablets Fit Flex Use 4-6 per day 180units N31.2 Leticia Armando, 10/22/2019 Incontinence M.D. Underwear For Women Feosol 1 by mouth every 30tabs D64.9 Leticia Armando, 10/22/2019 200(65Fe) mg day M.D. Tablets Ibuprofen Leticiajeremias Armando, 10/22/2019 200mg M.D. Capsules Yassine-Fit Natura use as directed 10units Hardik Farley NP 05/20/2019 Drainable Pouch Proair HFA 2 puffs every 4 8.500gm Leticia Armando, 10/02/2018 hours as needed M.D. 108(90Base) mcg/Act Aerosol Convatec 2 1/4 change daily 1Box Leticia Armando, 10/02/2018 Drainage Bags M.D. Misc Convatec 2 1 change daily 1Box Leticia Cotton, 10/02/2018 Wafers M.D. Misc Hydroxyzine HCL take 1 tablet by 120tabs Leticia Armando, 25mg mouth up to M.D. Tablets every 6 hours as needed for anxiety History Medications Venlafaxine HCL ER 1 by mouth 30caps F41.9 Hardik Farley NP 07/15/2019 - 75mg every day 10/22/2019 Caps ER 24HR Immunizations Description No Information Available Vital Signs Date Vital Result Comment 11/19/2019 8:34am Height 67 inches 5'7" Weight 124.00 lb Heart Rate 73 /min BP Systolic 107 mmHg BP Diastolic 61 mmHg O2 % BldC Oximetry 100 % BMI (Body Mass Index) 19.4 kg/m2 10/22/2019 2:40pm Height 67 inches 5'7" Weight 124.00 lb chair weighs 42lbs Heart Rate 84 /min BP Systolic 106 mmHg BP Diastolic 52 mmHg O2 % BldC Oximetry 100 % BMI (Body Mass Index) 19.4 kg/m2 Results Test Acquired Date Facility Test Result H/L Range Note Laboratory test 11/19/2019 [facility] HCG 3.86 [address] mIU/[place] [address] [phone] CBC Auto Diff 11/13/2019 [facility] White Blood 10.8 Normal 3.5-10.[address] Count 10^3/[place] [address] [phone] Red Blood Count 4.02 10^6/uL Normal 3.70-4.87 Hemoglobin 10.6 g/dL Low 12.0-16.0 Hematocrit 33 % Low 35-47 Mean Corpuscular Volume 82 fL Normal 80-97 Mean Corpuscular Hemoglobin 26 pg Low 27-31 Mean Corpuscular HGB Conc 32 g/dL Normal 31-36 Red Cell Distribution Width 23 % High 10-15 Platelet Count 424 10^3/uL Normal 150-450 Mean Platelet Volume 7.8 fL Normal 7.4-10.4 Abs Neutrophils 7.4 10^3/uL Normal 1.5-7.7 Abs Lymphocytes 2.0 10^3/uL Normal 1.0-4.8 Abs Monocytes 0.7 10^3/uL Normal 0-0.8 Abs Eosinophils 0.5 10^3/uL Normal 0-0.6 Abs Basophils 0.1 10^3/uL Normal 0-0.2 Abs Nucleated RBC 0.0 10^3/uL Granulocyte % 68.9 % Lymphocyte % 18.9 % Monocyte % 6.3 % Eosinophil % 4.9 % Basophil % 1.0 % Nucleated Red Blood Cells % 0.0 Comp Metabolic 11/13/2019 [facility] Sodium 137 mmol/L Normal 135-145 Panel [address] [place] [id number] [phone] Potassium 3.7 mmol/L Normal 3.5-5.0 Chloride 110 mmol/L Normal 101-111 Co2 Carbon Dioxide 22 mmol/L Normal 22-32 Anion Gap 5 mmol/L Normal 2-11 Glucose 92 mg/dL Normal 70-100 Blood Urea Nitrogen 11 mg/dL Normal 6-24 Creatinine 0.62 mg/dL Normal 0.51-0.95 BUN/Creatinine Ratio 17.7 Normal 8-20 Calcium 9.5 mg/dL Normal 8.6-10.3 Total Protein 7.1 g/dL Normal 6.4-8.9 Albumin 4.2 g/dL Normal 3.2-5.2 Globulin 2.9 g/dL Normal 2-4 Albumin/Globulin Ratio 1.4 Normal 1-3 Total Bilirubin 0.20 mg/dL Normal 0.2-1.0 Alkaline Phosphatase 91 U/L Normal 34-104 Alt 13 U/L Normal 7-52 Ast 16 U/L Normal 13-39 Egfr Non- 110.2 >60 Egfr 133.3 >60 2 Laboratory test 11/13/2019 [facility] HCG 43.43 mIU/ mL [address] [place] [address] [phone] Pathologist Review (SEE NOTE) 4 CBC Auto 09/29/2019 [facility] White Blood 10.6 10^3/uL Normal 3.5-10.[address] [place] [address] [phone] Red Blood Count 3.50 10^6/uL Low 3.70-4.87 [...] Blood Cells % 0.0 Comp Metabolic 09/29/2019 [facility] Sodium 137 mmol/L Normal 135-[address] [place] [address] [phone] Potassium 3.6 mmol/L Normal 3.5-5.0 Chloride 108 [...] Egfr Non- 123.9 >60 Egfr 149.9 >60 5 Laboratory test 09/29/2019 [facility] C Reactive 5.35 mg/L Normal <8.[address] [place] [address] [phone] HCG < 0.60 mIU/mL 6 1 <5.0 Negative 5.0 - 25.0 Indeterminate (Repeat testing recommended after 72 hours) >25.0 Positive Perimenopausal women can display HCG levels of up to 20 mIU/mL 2 Because ethnic data is not always readily [...] 15-29 5 Kidney failure <15 (or dialysis) 3 <5.0 Negative 5.0 - 25.0 Indeterminate (Repeat testing recommended after 72 hours) >25.0 Positive Perimenopausal women can display HCG levels of up to 20 mIU/mL 4 Normocytic anemia. Reviewed by Rubi Corbin MD 5 Because ethnic data is not always readily [...] 15-29 5 Kidney failure <15 (or dialysis) 6 <5.0 Negative 5.0 - 25.0 Indeterminate (Repeat testing recommended after 72 hours) >25.0 Positive Perimenopausal women can display HCG levels of up to 20 mIU/mL Procedures Description No Information Available Medical Devices Description No Information Available Encounters Type Date Location Provider Dx Diagnosis Office Visit 11/19/2019 [facility] Leticia Armando, O03.30 Unsp complication 8:40a Marlin Sanchez M.D. following incomplete spontaneous R12 Heartburn G82.20 Paraplegia, unspecified M25.512 Pain in left shoulder Office Visit 10/22/2019 2:40p [facility] Leticia Z93.3 Colostomy status Marlin Armando M.D. 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 incomplete spontaneous 11/19/2019 R12 Heartburn Leticia Armando M.D. 11/19/2019 G82.20 Paraplegia, unspecified Leticia Armando M.D. 11/19/2019 M25.512 Pain in left shoulder Leticia Armando M.D. 10/22/2019 Z93.3 Colostomy status Leticia Armando M.D. 10/22/2019 D64.9 Anemia, unspecified Leticia Armando M.D. 10/22/2019 M25.512 Pain in left shoulder Leticia Armando M.D. 10/22/2019 G82.20 Paraplegia, unspecified Leticia Armando M.D. 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 classified 10/22/2019 F41.9 Anxiety disorder, unspecified Leticia Armando M.D. 10/22/2019 J45.909 Unspecified asthma, uncomplicated Leticia Armando M.D. 10/22/2019 Z72.0 Tobacco use Leticia Armando M.D. Plan of Treatment Future Appointment(s):02/19/2020 3:40 pm - Leticia Armando M.D. at [facility]11/19/2019 - Leticia Armando M.D.O03.30 Unspecified complication following incomplete spontaneous abortionComments:Please do blood test [id number] HeartburnNew Medication:Famotidine 20 mg - 1 by mouth once or twice dailyComments:Things that aggravate acid reflux:Ibuprofen and similar drugs ( Motrin, Advil, Aleve, naproxen )caffeinealcohollying down within 2 hours of eating Medication: try famotidine, call me if that is not workingFollow up:3 rearxfX44.20 Paraplegia, unspecifiedComments:I will mail you some ejsspluewabY15.512 Pain in left shoulderReferral:Darleen Lockhart MD, Sports Medicine:Family pr Functional Status Description No Information Available Mental Status Description No Information Available Referrals Refer to Reason for Referral Status Appt Date Darleen Lockhart MD Created [address] [facility] [address] [place] [address] [phone]
[2019-12-15 23:27] VITALS: BP 104/59
== END 2019-12-15 23:25 | disposition home or self-care (01) ==
LOC: ED 21:24
DX: F41.9 Anxiety disorder, unspecified (principal); D64.9 Anemia, unspecified; J45.909 Unspecified asthma, uncomplicated; F32.9 Major depressive disorder, single episode, unspecified; F43.10 Post-traumatic stress disorder, unspecified; F17.210 Nicotine dependence, cigarettes, uncomplicated; Z88.1 Allergy status to other antibiotic agents
CPT/HCPCS: 36415; 80053; 80320; 80329; 84443; 84702; 85025; 99282; G0480